=== PATIENT | male | born 1950 | race Caucasian/White ===

== ENCOUNTER → 2017-03-17 | Day surgery (SDC) | payer BC, OTHER ==
[~2017-03-17] MED LIST: Lactated Ringers 1,000 ML IV SCH; Lidocaine 4% Top Soln 5 ML LTA Syringe ONE; Meperidine PF 50 MG/ML Syringe IV ONE; Meperidine PF 50 MG/ML Syringe ONE; Midazolam 1 MG/ML 2 ML SDV IV ONE; Midazolam 1 MG/ML 2 ML SDV ONE
[2017-03-17 10:02] VITALS: BP 163/88
--- NOTE | 2017-03-17 14:45 | OR ---
DATE OF OPERATION: 03/17/2017 PREOPERATIVE DIAGNOSIS: 1. ABDOMINAL PAIN. 2. ALTERED BOWEL HABITS. POSTOPERATIVE DIAGNOSIS: 1. ABDOMINAL PAIN. 2. ALTERED BOWEL HABITS. SURGEON: Kenn Toscano MD PROCEDURE: 1. ESOPHAGOGASTRODUODENOSCOPY WITH BIOPSIES X2, KELLY. 2. FULL-LENGTH COLONOSCOPY. ANESTHESIA: Conscious sedation. COMPLICATIONS: None. SPECIMEN: 1. Antral biopsy x2. 2. KELLY. FINDINGS: 1. Full-length EGD. 2. Hemorrhagic antral gastritis. 3. Full-length colonoscopy. 4. Mild sigmoid diverticulosis. RECOMMENDATIONS: Medical followup as appropriate. INDICATIONS: The patient has been having ongoing issues with some epigastric and upper abdominal discomfort with occasional altered bowels, which are longstanding. We elected to proceed with upper and lower endoscopy. DESCRIPTION OF PROCEDURE: The patient was prepped and draped, placed in the left lateral decubitus position. A lubricated Olympus gastroscope inserted, a bit advanced cricopharyngeus area with the patient intubated in the esophagus. Esophageal lining was benign in its entire course. The Z-line was crisp and sharp at 38.5 Cm. No hernia. No distal esophagitis, stricturing, ulceration, or Dubon's changes seen. The scope was advanced into the stomach through the pylorus into the third portion of the duodenum. The second and third portion of the duodenum along with the duodenal bulb were benign. The scope was brought back into the stomach and retroflexed. The upper fundus and cardia were unremarkable. Upon straightening and good evaluation, the rest of the gastric lining showed evidence of antral gastritis, fairly prominent and significant around the pylorus with some petechial changes there consistent with hemorrhagic gastritis. Biopsies x2 were taken along with a KELLY. No other polyps, masses, or lesions were seen. Air was then suctioned, and the scope was removed without complication. A lubricated Olympus colonoscope was then inserted and easily advanced to the deep right colon where the patient is very obese. It is very difficult to get the scope into the cecal pouch. We could visualize the valve from a few centimeters away, but could not actually get into the pouch to look, and there was a lot of stool there, so no visualization of that most proximal portion of the colon was seen. The rest of the colon had a lot of liquid stool, but was able to be suctioned. Upon withdrawal throughout the right transverse and descending colon, no abnormalities were seen. The patient does have scattered diverticula in the sigmoid, mild in severity, mostly in the distal sigmoid area, and in the rectosigmoid junction. No masses, polyps, ulcerations, or bleeding sites were seen. No vascular abnormalities or signs of colitis. The rectal vault was unremarkable. Retroflexion scope in the rectum showed no anal lesions. Air was then suctioned. Scope was removed without complication. FABIANO/LAKISHA /[id number]
== END ==
LOC: CC.SDS 08:06
PROVIDERS: ATTEND Family Medicine
DX: K29.51 Unspecified chronic gastritis with bleeding (principal); K57.30 Diverticulosis of large intestine without perforation or abscess without bleeding
CPT/HCPCS: 43239; 45378; 82962; 87081; J2175; J2250; J7120

== ENCOUNTER 2017-06-27 08:37 | Inpatient (IN) | payer OTHER, MEDICARE ==
[2017-06-27] MEDS ORDERED: Temazepam 15 MG Cap PO PRN (09:58)
[2017-06-27] MEDS ORDERED: Ondansetron 4 MG Tab.DIS PO PRN (09:58)
[2017-06-27] MEDS ORDERED: Acetaminophen 325 MG Tab PO PRN (09:58)
[2017-06-27 10:42] LABS: CHLORIDE,CL 104 mEq/L (98-106); SODIUM,NA 142 mEq/L (136-145)
[2017-06-27] MEDS: Insulin Aspart 100 Units/ML 3 ML Pen SUBCUT SCH ×3 (11:34→21:55)
[2017-06-27] MEDS: Sodium Chloride 0.9% 1,000 ML IV SCH (11:46)
[2017-06-27] MEDS ORDERED: Iopamidol 612 MG/ML 100 ML Bottle IVPUSH ONE (14:27)
[2017-06-27] MEDS: Enoxaparin 40 MG/0.4 ML Syringe SUBCUT SCH (20:05)
[2017-06-27] MEDS: CYCLOSPORINE OPTHALMIC EYEBOTH SCH (21:55)
[2017-06-28] MEDS: Sodium Chloride 0.9% 1,000 ML IV SCH (00:57)
[2017-06-28] MEDS: Levothyroxine 50 MCG Tab PO SCH (07:00)
[2017-06-28] MEDS: Fenofibrate 160 MG Tab PO SCH (07:50)
[2017-06-28] MEDS: CYCLOSPORINE OPTHALMIC EYEBOTH SCH ×2 (07:51→20:33)
[2017-06-28] MEDS: Lisinopril 10 MG Tab PO SCH (07:51)
[2017-06-28] MEDS: Pantoprazole 40 MG Tab.CR PO SCH (07:51)
[2017-06-28] MEDS: Insulin Aspart 100 Units/ML 3 ML Pen SUBCUT SCH ×4 (07:52→20:41)
[2017-06-28] MEDS: Insulin Detemir 100 Units/ML 3 ML Pen SUBCUT SCH ×2 (09:41→20:40)
[2017-06-28] MEDS: Metoclopramide 10 MG Tab PO SCH ×2 (14:26→20:35)
[2017-06-28] MEDS: Gabapentin 100 MG Cap PO SCH ×2 (14:26→20:35)
--- NOTE | 2017-06-28 16:00 | PCM.PN ---
- General Info Date of Service: 06/28/17 Admission Dx/Problem (Free Text): Weight loss Confusion Nausea Functional Status: Reports: Pain Controlled, Tolerating Diet, Ambulating, Urinating (frequent urination) - Review of Systems General: Reports: Fatigue. Denies: Fever, Weakness HEENT: Denies: Ear Pain, Sinus Congestion, Rhinitis Pulmonary: Denies: Shortness of Breath, Cough, Wheezing Cardiovascular: Reports: Edema. Denies: Chest Pain, Lightheadedness Gastrointestinal: Reports: Decreased Appetite, Nausea. Denies: Abdominal Pain, Vomiting Genitourinary: Reports: Frequency. Denies: Dysuria Musculoskeletal: Reports: No Symptoms Skin: Reports: No Symptoms Neurological: Reports: Confusion (patient states "sees things at night that aren 't there, not ever sure if he is sleeping or not") - Patient Data Vitals - Most Recent: Last Vital Signs Temp 97.3 F 06/28/17 11:29 Pulse 75 06/28/17 11:29 Resp 20 06/28/17 11:29 BP 144/77 H 06/28/17 11:29 Pulse Ox 96 06/28/17 11:29 Weight - Most Recent: 227 lb 1.6 oz I&O - Last 24 Hours: Intake & Output 06/28/17 06/28/17 06/28/17 06:59 14:59 22:59 Intake Total 2139 200 Output Total 2700 600 Balance -561 -400 Lab Results Last 24 Hours: Laboratory Results - last 24 hr 06/27/17 06/27/17 06/27/17 Range/Units 07:00 17:20 20:22 POC Glucose 112 H 130 H (75-105) mg/dl TSH, Ultra Sensitive 1.40 (0.36-5.60) uIU/mL 06/28/17 06/28/17 Range/Units 07:25 11:27 POC Glucose 114 H 114 H (75-105) mg/dl TSH, Ultra Sensitive (0.36-5.60) uIU/mL Med Orders - Current: Current Medications Acetaminophen (Tylenol) 650 mg PO Q4H PRN PRN Reason: Pain (Mild 1-3)/fever Enoxaparin Sodium (Lovenox) 40 mg SUBCUT Q24H [facility] Last Admin: 06/27/17 20:05 Dose: 40 mg Fenofibrate (Fenofibrate) 80 mg PO DAILY [facility] Last Admin: 06/28/17 07:50 Dose: 80 mg Gabapentin (Neurontin) 100 mg PO TID [facility] Last Admin: 06/28/17 14:26 Dose: 100 mg Insulin Aspart (Novolog) 0 unit SUBCUT WITHMEALSANDBED [facility] PRN Reason: Protocol Last Admin: 06/28/17 13:00 Dose: Not Given Insulin Detemir (Levemir) 40 unit SUBCUT BID [facility] Last Admin: 06/28/17 09:41 Dose: Not Given Levothyroxine Sodium (Synthroid) 75 mcg PO DAILY [facility] Last Admin: 06/28/17 07:00 Dose: 75 mcg Lisinopril (Prinivil) 10 mg PO DAILY [facility] Last Admin: 06/28/17 07:51 Dose: 10 mg Metoclopramide HCl (Reglan) 10 mg PO TID [facility] Last Admin: 06/28/17 14:26 Dose: 10 mg Cyclosporine [ (Restasis] Opthalmic) 1 drop EYEBOTH BID [facility] Last Admin: 06/28/17 07:51 Dose: Not Given Ondansetron HCl (Zofran Odt) 4 mg PO Q4H PRN PRN Reason: nausea, able to take PO Last Admin: 06/27/17 20:06 Dose: 4 mg Pantoprazole Sodium (Protonix) 40 mg PO DAILY [facility] Last Admin: 06/28/17 07:51 Dose: 40 mg Temazepam (Restoril) 15 mg PO BEDTIME PRN PRN Reason: Sleep Discontinued Medications Sodium Chloride (Normal Saline) 1,000 mls @ 75 mls/hr IV ASDIRECTED [facility] Last Admin: 06/28/17 00:57 Dose: 75 mls/hr Iopamidol (Isovue-300 (61%)) 100 ml IVPUSH ONETIME ONE Stop: 06/27/17 14:28 Last Admin: 06/27/17 14:32 Dose: 100 ml - Exam General: Alert, Oriented HEENT: Mucous Membr. Moist/[place] Neck: Supple Lungs: Clear to Auscultation, Normal Respiratory Effort Cardiovascular: Regular Rate, Regular Rhythm GI/Abdominal Exam: Normal Bowel Sounds, Soft, Non-Tender Extremities: Normal Inspection Skin: Warm, Dry Neurological: No New Focal Deficit - Problem List & Annotations (1) Weight loss SNOMED Code(s): 675063366, 090559321 Code(s): R63.4 - ABNORMAL WEIGHT LOSS Status: Acute Current Visit: Yes (2) Nausea SNOMED Code(s): 503704867 Code(s): R11.0 - NAUSEA Status: Acute Current Visit: Yes (3) Hallucinations SNOMED Code(s): 8065643 Code(s): R44.3 - HALLUCINATIONS, UNSPECIFIED Status: Acute Current Visit : Yes (4) Dehydration SNOMED Code(s): 95645452 Code(s): E86.0 - DEHYDRATION Status: Acute Priority: High Current Visit : No - Problem List Review Problem List Initiated/Reviewed/Updated: Yes - My Orders Last 24 Hours: My Active Orders 06/28/17 09:45 Insulin Detemir [Levemir] 40 unit SUBCUT BID 06/28/17 14:00 Gabapentin [Neurontin] 100 mg PO TID Metoclopramide [Reglan] 10 mg PO TID - Assessment Assessment:: Weight Loss Nausea Nighttime hallucinations - Plan Plan:: Patient states "not feeling that well this am" after eating breakfast. Feels very nauseated. Did eat 100% this am. States didn't sleep well due to frequency with urination. Admits that is currently not taking the Toviaz, took 2 days and didn't see any improvement. Also complains of constant itching. Was to try Lyrica for this but was scared of the side effects. States still having nighttime hallucinations, not sure if "awake or asleep" during these. Is worried that he has early signs of Alzheimers as his father did although he has no concerns with forgetfulness or memory issues. Has not been very compliant with meds in the past. Has been nauseated and not eating well for the last 3 weeks. History of PUD. Admitted for 13# weight loss during that time. CT scans of abdomen, pelvis, chest and head done. All negative. Initial labs on admit negative. Long discussion held today with patient, , Dr. Toscano and myself. Is noncompliant with meds and generally many that have been suggested to him would help his symptoms. Will stop his Primidone that he took for tremors. Start Reglan for probable gastroparesis. Resume his insulin. Start gabapentin for the itching. He and his do want to see a diabetic specialist so will arrange for him to see Dr. Lange in the future despite his A1C being 6.7. Continue Protonix. Stop IV fluids. Ambulate in halls and see how he does. Has been worried about depression and since these hallucinations seem to only occur at night, at some point, may need to see psychologist. Will reevaluate in am and see if getting some relief of his symptoms.
[2017-06-28] MEDS: Enoxaparin 40 MG/0.4 ML Syringe SUBCUT SCH (20:34)
[2017-06-29] MEDS: CYCLOSPORINE OPTHALMIC EYEBOTH SCH ×2 (07:57→19:47)
[2017-06-29] MEDS: Fenofibrate 160 MG Tab PO SCH (07:57)
[2017-06-29] MEDS: Gabapentin 100 MG Cap PO SCH ×3 (07:58→19:48)
[2017-06-29] MEDS: Lisinopril 10 MG Tab PO SCH (07:59)
[2017-06-29] MEDS: Levothyroxine 50 MCG Tab PO SCH (07:59)
[2017-06-29] MEDS: Pantoprazole 40 MG Tab.CR PO SCH (07:59)
[2017-06-29] MEDS: Metoclopramide 10 MG Tab PO SCH ×3 (07:59→19:49)
[2017-06-29] MEDS: Insulin Aspart 100 Units/ML 3 ML Pen SUBCUT SCH ×4 (08:05→20:33)
[2017-06-29] MEDS: Insulin Detemir 100 Units/ML 3 ML Pen SUBCUT SCH ×2 (08:05→20:33)
--- NOTE | 2017-06-29 12:35 | PCM.PN ---
- General Info Date of Service: 06/29/17 Admission Dx/Problem (Free Text): Weight loss Confusion Nausea Functional Status: Reports: Pain Controlled, Tolerating Diet, Ambulating - Review of Systems General: Reports: Weakness, Fatigue. Denies: Fever HEENT: Reports: No Symptoms Pulmonary: Denies: Shortness of Breath, Cough, Wheezing Cardiovascular: Denies: Chest Pain, Edema, Lightheadedness Gastrointestinal: Reports: Nausea (states nausea is somewhat better than yesterday). Denies: Abdominal Pain, Decreased Appetite, Diarrhea, Vomiting Genitourinary: Reports: Frequency (frequency is less prominent than it has been) Musculoskeletal: Reports: No Symptoms Skin: Reports: No Symptoms Neurological: Reports: No Symptoms. Denies: Dizziness, Headache Psychiatric: Reports: No Symptoms - Patient Data Vitals - Most Recent: Last Vital Signs Temp 96.7 F 06/29/17 08:00 Pulse 60 06/29/17 08:00 Resp 19 06/29/17 08:00 BP 137/76 06/29/17 08:00 Pulse Ox 99 06/29/17 08:00 Weight - Most Recent: 228 lb 8 oz I&O - Last 24 Hours: Intake & Output 06/28/17 06/29/17 06/29/17 22:59 06:59 14:59 Intake Total 750 325 Output Total 450 1000 Balance 300 -675 Lab Results Last 24 Hours: Laboratory Results - last 24 hr 06/28/17 06/28/17 06/29/17 Range/Units 17:14 20:21 08:04 POC Glucose 136 H 238 H 97 (75-105) mg/dl Med Orders - Current: Current Medications Acetaminophen (Tylenol) 650 mg PO Q4H PRN PRN Reason: Pain (Mild 1-3)/fever Enoxaparin Sodium (Lovenox) 40 mg SUBCUT Q24H [facility] Last Admin: 06/28/17 20:34 Dose: 40 mg Fenofibrate (Fenofibrate) 80 mg PO DAILY [facility] Last Admin: 06/29/17 07:57 Dose: 80 mg Gabapentin (Neurontin) 100 mg PO TID [facility] Last Admin: 06/29/17 07:58 Dose: 100 mg Insulin Aspart (Novolog) 0 unit SUBCUT WITHMEALSANDBED [facility] PRN Reason: Protocol Last Admin: 06/29/17 12:02 Dose: Not Given Insulin Detemir (Levemir) 40 unit SUBCUT BID [facility] Last Admin: 06/29/17 08:05 Dose: 40 unit Levothyroxine Sodium (Levothyroxine) 75 mcg PO DAILY [facility] Lisinopril (Prinivil) 10 mg PO DAILY [facility] Last Admin: 06/29/17 07:59 Dose: 10 mg Metoclopramide HCl (Reglan) 10 mg PO TID [facility] Last Admin: 06/29/17 07:59 Dose: 10 mg Cyclosporine [ (Restasis] Opthalmic) 1 drop EYEBOTH BID [facility] Last Admin: 06/29/17 07:57 Dose: 1 drop Ondansetron HCl (Zofran Odt) 4 mg PO Q4H PRN PRN Reason: nausea, able to take PO Last Admin: 06/27/17 20:06 Dose: 4 mg Pantoprazole Sodium (Protonix) 40 mg PO DAILY [facility] Last Admin: 06/29/17 07:59 Dose: 40 mg Temazepam (Restoril) 15 mg PO BEDTIME PRN PRN Reason: Sleep Discontinued Medications Sodium Chloride (Normal Saline) 1,000 mls @ 75 mls/hr IV ASDIRECTED [facility] Last Admin: 06/28/17 00:57 Dose: 75 mls/hr Iopamidol (Isovue-300 (61%)) 100 ml IVPUSH ONETIME ONE Stop: 06/27/17 14:28 Last Admin: 06/27/17 14:32 Dose: 100 ml Levothyroxine Sodium (Synthroid) 75 mcg PO DAILY [facility] Last Admin: 06/29/17 07:59 Dose: 75 mcg - Exam General: Alert, Oriented HEENT: Mucous Membr. Moist/[place] Neck: Supple Lungs: Clear to Auscultation, Normal Respiratory Effort Cardiovascular: Regular Rate, Regular Rhythm GI/Abdominal Exam: Normal Bowel Sounds, Soft, Non-Tender Skin: Warm, Dry Neurological: No New Focal Deficit - Problem List & Annotations (1) Weight loss SNOMED Code(s): 746959854, 900379291 Code(s): R63.4 - ABNORMAL WEIGHT LOSS Status: Acute Priority: High Current Visit: Yes (2) Nausea SNOMED Code(s): 313802005 Code(s): R11.0 - NAUSEA Status: Acute Priority: High Current Visit: Yes (3) Hallucinations SNOMED Code(s): 4928599 Code(s): R44.3 - HALLUCINATIONS, UNSPECIFIED Status: Acute Priority: High Current Visit: Yes (4) Dehydration SNOMED Code(s): 52925022 Code(s): E86.0 - DEHYDRATION Status: Acute Priority: High Current Visit : No - Problem List Review Problem List Initiated/Reviewed/Updated: Yes - My Orders Last 24 Hours: My Active Orders 06/28/17 14:00 Gabapentin [Neurontin] 100 mg PO TID Metoclopramide [Reglan] 10 mg PO TID - Assessment Assessment:: Weight Loss Nausea Nighttime hallucinations - Plan Plan:: Patient states "not feeling that well this am" after eating breakfast. Feels very nauseated. Did eat 100% this am. States didn't sleep well due to frequency with urination. Admits that is currently not taking the Toviaz, took 2 days and didn't see any improvement. Also complains of constant itching. Was to try Lyrica for this but was scared of the side effects. States still having nighttime hallucinations, not sure if "awake or asleep" during these. Is worried that he has early signs of Alzheimers as his father did although he has no concerns with forgetfulness or memory issues. Has not been very compliant with meds in the past. Has been nauseated and not eating well for the last 3 weeks. History of PUD. Admitted for 13# weight loss during that time. CT scans of abdomen, pelvis, chest and head done. All negative. Initial labs on admit negative. Long discussion held today with patient, , Dr. Toscano and myself. Is noncompliant with meds and generally many that have been suggested to him would help his symptoms. Will stop his Primidone that he took for tremors. Start Reglan for probable gastroparesis. Resume his insulin. Start gabapentin for the itching. He and his do want to see a diabetic specialist so will arrange for him to see Dr. Lange in the future despite his A1C being 6.7. Continue Protonix. Stop IV fluids. Ambulate in halls and see how he does. Has been worried about depression and since these hallucinations seem to only occur at night, at some point, may need to see psychologist. Will reevaluate in am and see if getting some relief of his symptoms. 06-29-2017 Patient admits he is feeling better today. Has been ambulating frequently in the halls. Feels nausea has improved. Notes he was yesterday am and again last night but certainly improved from what it had been. States slept very well last night. He was also started on Gabapentin and thus far has tolerated well. does not feel back to his usual self yet but better. Vital signs stable. Blood sugars have varied between 97-238. Less hallucinations last night, states only occurred x1. Continue new meds with probable discharge in am.
[2017-06-29] MEDS: Enoxaparin 40 MG/0.4 ML Syringe SUBCUT SCH (19:48)
[2017-06-30 07:48] VITALS: BP 121/71
[2017-06-30] MEDS ORDERED: Levothyroxine 150 MCG Tab PO SCH (08:00)
[2017-06-30] MEDS: Metoclopramide 10 MG Tab PO SCH (08:11)
[2017-06-30] MEDS: Fenofibrate 160 MG Tab PO SCH (08:11)
[2017-06-30] MEDS: Insulin Aspart 100 Units/ML 3 ML Pen SUBCUT SCH (08:12)
[2017-06-30] MEDS: CYCLOSPORINE OPTHALMIC EYEBOTH SCH (08:12)
[2017-06-30] MEDS: Gabapentin 100 MG Cap PO SCH (08:12)
[2017-06-30] MEDS: Lisinopril 10 MG Tab PO SCH (08:12)
[2017-06-30] MEDS: Pantoprazole 40 MG Tab.CR PO SCH (08:12)
[2017-06-30] MEDS: Insulin Detemir 100 Units/ML 3 ML Pen SUBCUT SCH (08:14)
--- NOTE | 2017-07-02 22:05 | PCM.DCSUM1 ---
Discharge Summary - Hospital Course Free Text/Narrative:: Patient admitted form clinic per Dr. Toscano due to ongoing nausea and a 13# weight loss, confusion. Had not had much of an appetite. Relates he had been experiencing hallucinations, especially at night. Reprots he had been seeing things that were not there. Patient had felt weak. Was admitted for med changes and complete work up to consider all sources of weight loss. Labs ordered. CT scan of abdomen, pelvis and head ordered. - Discharge Data Discharge Date: 06/30/17 Discharge Disposition: Home, Self-Care 01 Condition: Good - Discharge Diagnosis/Problem(s) (1) Weight loss SNOMED Code(s): 09611551, 590074674 ICD Code: R63.4 - ABNORMAL WEIGHT LOSS Status: Acute Priority: High (2) Nausea SNOMED Code(s): 452176751 ICD Code: R11.0 - NAUSEA Status: Acute Priority: High (3) Hallucinations SNOMED Code(s): 8273568 ICD Code: R44.3 - HALLUCINATIONS, UNSPECIFIED Status: Acute Priority: High (4) Dehydration SNOMED Code(s): 00263600 ICD Code: E86.0 - DEHYDRATION Status: Acute Priority: High - Patient Summary/Data Complications: none Hospital Course: Patient has seen improvement over the last 3 days. He did initially feel nauseated but was tolerating meal intake. Stopped his Primidone and started Reglan. Patient has been experiencing itching throughout and we were able to initiate Gabapentin and watch for tolerance and side effects. He had been leary to try Lyrica as he was scared of the side effects. He has tolerated the gabapentin. Insulin was restarted, sugars under fairly good control. 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 Patient was feeling better by discharge. Up and ambulatory. Tolerated well. - Patient Instructions Diet: Diabetic Diet Activity: As Tolerated Notify Provider of: Fever, Nausea and/or Vomiting - Discharge Plan Prescriptions/Med Rec: Gabapentin [Neurontin] 100 mg PO TID #90 cap Metoclopramide [Reglan] 10 mg PO TID #90 tablet Home Medications: Home Meds Levothyroxine Sodium [Levoxyl] 75 mcg PO DAILY 09/24/15 [History] Pantoprazole [ProTONIX] 40 mg PO DAILY 09/24/15 [History] Ranitidine HCl 300 mg PO DAILY 09/24/15 [History] Rosuvastatin [Crestor] 10 mg PO DAILY 09/24/15 [History] buPROPion HCl [Wellbutrin Xl] 300 mg PO DAILY 09/24/15 [History] Cetirizine [ZyrTEC] 1 mg PO DAILY PRN 02/17/16 [History] Fenofibrate Nanocrystallized [Tricor] 48 mg PO DAILY 02/17/16 [History] Insulin Aspart [NovoLOG] 16 units SUBCUT QAM 03/14/17 [History] Insulin Aspart [NovoLOG] 20 units SUBCUT 1200 03/14/17 [History] Insulin Aspart [NovoLOG] 24 units SUBCUT WITHDINNER 03/14/17 [History] Lisinopril 10 mg PO DAILY 03/14/17 [History] Triamcinolone Acetonide [Triamcinolone Acetonide 0.1% Crm] 1 applic TOP TID PRN 03/14/17 [History] Fesoterodine Fumarate [Toviaz] 8 mg PO BEDTIME 06/27/17 [History] Tresiba 80 unit SQ BEDTIME 06/27/17 [History] cycloSPORINE [Restasis] 1 drop EYEBOTH BID 06/27/17 [History] Gabapentin [Neurontin] 100 mg PO TID #90 cap 06/30/17 [Rx] Metoclopramide [Reglan] 10 mg PO TID #90 tablet 06/30/17 [Rx] Referrals: Kenn Toscano MD [Primary Care Provider] - (Follow up in [address] Toscano in clinic) - Discharge Summary/Plan Comment DC Time >30 min.: No Discharge Summary/Plan Comment: Stop Primidone. Continue Reglan. Continue Miralax. Gabapentin 100 mg TID. Follow up with DR. Toscano in 2 weeks. - General Info Date of Service: 06/30/17 Admission Dx/Problem (Free Text: Weight loss Confusion Nausea Functional Status: Reports: Pain Controlled, Tolerating Diet, Ambulating - Review of Systems General: Reports: Fatigue. Denies: Fever, Weakness HEENT: Reports: No Symptoms Pulmonary: Denies: Shortness of Breath, Cough, Wheezing Cardiovascular: Denies: Chest Pain, Edema, Lightheadedness Gastrointestinal: Denies: Constipation, Decreased Appetite, Nausea, Vomiting Genitourinary: Reports: Frequency Musculoskeletal: Reports: No Symptoms Skin: Reports: No Symptoms Neurological: Denies: Confusion, Weakness Psychiatric: Reports: No Symptoms - Patient Data Vitals - Most Recent: Last Vital Signs Temp 96.7 F 06/30/17 07:47 Pulse 66 06/30/17 07:47 Resp 18 06/30/17 07:47 BP 121/71 06/30/17 08:12 Pulse Ox 98 06/30/17 07:47 Weight - Most Recent: 227 lb 6.4 oz Med Orders - Current: Current Medications Discontinued Medications Acetaminophen (Tylenol) 650 mg PO Q4H PRN PRN Reason: Pain (Mild 1-3)/fever Enoxaparin Sodium (Lovenox) 40 mg SUBCUT Q24H [facility] Last Admin: 06/29/17 19:48 Dose: 40 mg Fenofibrate (Fenofibrate) 80 mg PO DAILY [facility] Last Admin: 06/30/17 08:11 Dose: 80 mg Gabapentin (Neurontin) 100 mg PO TID [facility] Last Admin: 06/30/17 08:12 Dose: 100 mg Sodium Chloride (Normal Saline) 1,000 mls @ 75 mls/hr IV ASDIRECTED [facility] Last Admin: 06/28/17 00:57 Dose: 75 mls/hr Insulin Aspart (Novolog) 0 unit SUBCUT WITHMEALSANDBED [facility] PRN Reason: Protocol Last Admin: 06/30/17 08:12 Dose: Not Given Insulin Detemir (Levemir) 40 unit SUBCUT BID [facility] Last Admin: 06/30/17 08:14 Dose: 40 unit Iopamidol (Isovue-300 (61%)) 100 ml IVPUSH ONETIME ONE Stop: 06/27/17 14:28 Last Admin: 06/27/17 14:32 Dose: 100 ml Levothyroxine Sodium (Synthroid) 75 mcg PO DAILY [facility] Last Admin: 06/29/17 07:59 Dose: 75 mcg Levothyroxine Sodium (Levothyroxine) 75 mcg PO DAILY [facility] Last Admin: 06/30/17 08:11 Dose: 75 mcg Lisinopril (Prinivil) 10 mg PO DAILY [facility] Last Admin: 06/30/17 08:12 Dose: 10 mg Metoclopramide HCl (Reglan) 10 mg PO TID [facility] Last Admin: 06/30/17 08:11 Dose: 10 mg Cyclosporine [ (Restasis] Opthalmic) 1 drop EYEBOTH BID [facility] Last Admin: 06/30/17 08:12 Dose: 1 drop Ondansetron HCl (Zofran Odt) 4 mg PO Q4H PRN PRN Reason: nausea, able to take PO Last Admin: 06/27/17 20:06 Dose: 4 mg Pantoprazole Sodium (Protonix) 40 mg PO DAILY [facility] Last Admin: 06/30/17 08:12 Dose: 40 mg Temazepam (Restoril) 15 mg PO BEDTIME PRN PRN Reason: Sleep - Exam General: Reports: Alert, Oriented HEENT: Reports: Mucous Membr. Moist/[place] Neck: Reports: Supple Lungs: Reports: Clear to Auscultation, Normal Respiratory Effort Cardiovascular: Reports: Regular Rate, Regular Rhythm GI/Abdominal Exam: Normal Bowel Sounds, Soft, Non-Tender (Male) Exam: No Hernia Extremities: Normal Inspection, Normal Range of Motion Skin: Reports: Warm, Dry Neurological: Reports: No New Focal Deficit *Q Meaningful Use (DIS) - VTE *Q VTE Criteria *Q: - Stroke *Q Stroke Criteria *Q: - AMI *Q AMI Criteria *Q:
== END 2017-06-30 09:45 | disposition home or self-care (01) | DRG 641 ==
LOC: CC.MS 08:37 → CC.FCMC 08:37 → UNDOADMIN 09:29 → CC.MS 09:29
PROVIDERS: ADMIT Family Medicine; ATTEND Family Medicine
DX: R63.4 Abnormal weight loss (principal); R44.3 Hallucinations, unspecified; R11.0 Nausea; R41.0 Disorientation, unspecified; E86.0 Dehydration; E11.9 Type 2 diabetes mellitus without complications; F32.9 Major depressive disorder, single episode, unspecified; I10 Essential (primary) hypertension; E03.9 Hypothyroidism, unspecified; Z88.0 Allergy status to penicillin; Z79.899 Other long term (current) drug therapy; Z79.4 Long term (current) use of insulin
CPT/HCPCS: 36415; 70450; 71260; 74177; 80053; 81001; 82550; 82962; 84443; 84484; 85025; 86140; 93005; A9270-GY; J1650; J1815-GY; J7030; Q9967

== ENCOUNTER 2019-03-20 13:28 | Inpatient (IN) | payer OTHER, MEDICARE ==
[2019-03-20] MEDS ORDERED: Sodium Chloride 0.9% 10 ML Syringe FLUSH PRN (16:50)
[2019-03-20] MEDS ORDERED: Ondansetron 4 MG/2 ML SDV IV PRN (16:50)
[2019-03-20] MEDS ORDERED: Ondansetron 4 MG Tab.DIS PO PRN (16:50)
[2019-03-20] MEDS ORDERED: Morphine 2 MG/ML Syringe IVPUSH PRN (16:50)
[2019-03-20] MEDS ORDERED: CYCLOSPORINE 0.05% EYEBOTH PRN (16:56)
[2019-03-20] MEDS ORDERED: Insulin Lispro 100 Units/ML 3 ML Vial SUBCUT PRN (17:15)
[2019-03-20 17:52] LABS: CHLORIDE,CL 103 mEq/L (98-106); SODIUM,NA 140 mEq/L (136-145)
[2019-03-20] MEDS ORDERED: Iopamidol 755 Mg/ML 100 ML Bottle IVPUSH ONE (18:31)
[2019-03-20] MEDS: Enoxaparin 40 MG/0.4 ML Syringe SUBCUT SCH (19:10)
[2019-03-20] MEDS ORDERED: TRESIBA 40 UNIT SQ SCH (20:00)
[2019-03-20] MEDS: traZODone 50 MG Tab PO SCH (20:25)
[2019-03-20] MEDS: Simvastatin 40 MG Tab PO SCH (20:25)
[2019-03-20] MEDS: Gabapentin 100 MG Cap PO SCH (20:25)
[2019-03-20] MEDS: TRESIBA 30 UNIT SQ SCH (20:26)
[2019-03-21] MEDS: Levothyroxine 50 MCG Tab PO SCH (07:43)
[2019-03-21] MEDS: Gabapentin 100 MG Cap PO SCH (07:44)
[2019-03-21] MEDS: QUEtiapine 25 MG Tab PO SCH (07:45)
[2019-03-21] MEDS: Famotidine 20 MG Tab PO SCH (07:45)
[2019-03-21] MEDS: buPROPion 150 MG Tab.ER PO SCH (07:45)
[2019-03-21] MEDS ORDERED: Lisinopril 5 MG Tab PO PRN (08:00)
[2019-03-21] MEDS: TRESIBA 30 UNIT SQ SCH (10:12)
[2019-03-21] MEDS: cefTRIAXone 1 GM Vial IVPUSH SCH (10:25)
[2019-03-21] MEDS: VORTIOXETINE HYDROBROMIDE 20 MG PO SCH (10:25)
--- NOTE | 2019-03-21 11:43 | PCM.PN ---
- General Info Date of Service: 03/21/19 Admission Dx/Problem (Free Text): Bilateral Ankle Fractures Syncope Functional Status: Reports: Pain Controlled, Tolerating Diet. Denies: Ambulating - Review of Systems General: Reports: Weakness. Denies: Fever, Chills HEENT: Reports: No Symptoms Pulmonary: Denies: Shortness of Breath, Cough Cardiovascular: Denies: Chest Pain, Edema, Lightheadedness Gastrointestinal: Denies: Abdominal Pain, Nausea, Vomiting Genitourinary: Reports: No Symptoms Musculoskeletal: Reports: Leg Pain (states minimal leg discomfort now) Skin: Reports: No Symptoms Neurological: Reports: No Symptoms - Patient Data Vitals - Most Recent: Last Vital Signs Temp 96 F 03/21/19 07:40 Pulse 79 03/21/19 07:40 Resp 18 03/21/19 07:40 BP 143/65 H 03/21/19 07:40 Pulse Ox 98 03/21/19 07:40 Weight - Most Recent: 220 lb Lab Results Last 24 Hours: Laboratory Results - last 24 hr 03/20/19 03/20/19 03/20/19 Range/Units 17:23 17:30 17:30 WBC 12.4 H (5.0-10.0) 10^3/uL RBC 4.10 L (4.50-6.00) 10^6/uL Hgb 13.0 L (14.0-18.0) g/dL Hct 39.0 L (40.0-54.0) % MCV 95.1 H (82.0-94.0) fL MCH 31.7 (27.0-32.0) pg MCHC 33.3 (33.0-38.0) g/dL RDW Coeff of Krista 12.7 (11.0-15.0) % Plt Count 215 (150-400) 10^3/uL Neut % (Auto) 74.7 (35-85) % Lymph % (Auto) 15.1 (10-55) % [place] % (Auto) 9.8 (0-16) % Eos % (Auto) 0.2 (0-5) % Baso % (Auto) 0.2 (0-3) % Neut # (Auto) 9.24 H (1.80-7.00) 10^3/uL Lymph # (Auto) 1.87 (1.00-4.80) 10^3/uL [place] # (Auto) 1.22 H (0.00-0.80) 10^3/uL Eos # (Auto) 0.03 (0.00-0.45) 10^3/uL Baso # (Auto) 0.03 10^3/uL D-Dimer, Quantitative (0.00-0.50) Sodium 140 (136-145) mEq/L Potassium 4.5 (3.5-5.0) mEq/L Chloride 103 (98-106) mEq/L Carbon Dioxide 27 (21-32) mmol/L BUN 29 H (7-18) mg/dL Creatinine 1.4 H (0.7-1.3) mg/dL Est Cr Clr Drug Dosing 49.10 mL/min Estimated GFR (MDRD) 50 L (>=60) mL/min Glucose 139 H (75-99) mg/dL POC Glucose 128 H (75-105) mg/dl Calcium 9.2 (8.4-10.1) mg/dL Magnesium 2.0 (1.8-2.4) mg/dL Troponin I < 0.017 (0.00-0.06) ng/mL Urine Color (YELLOW) Urine Appearance (CLEAR) Urine pH (4.5-8.0) Ur Specific [place] (1.003-1.020) Urine Protein (NEGATIVE) mg/dL Urine Glucose (UA) (NEGATIVE) mg/dL Urine Ketones (NEGATIVE) mg/dL Urine Occult Blood (NEGATIVE) Urine Nitrite (NEGATIVE) Urine Bilirubin (NEGATIVE) Urine Urobilinogen (0.2-1.0) EU/dL Ur Leukocyte Esterase (NEGATIVE) Urine RBC (0-5) /HPF Urine WBC (0-5) /HPF Ur Squamous Epith Cells (NOT SEEN) /HPF Urine Bacteria (NOT SEEN) /HPF Urinalysis Comment 03/20/19 03/20/19 03/20/19 Range/Units 17:30 20:40 21:26 WBC (5.0-10.0) 10^3/uL RBC (4.50-6.00) 10^6/uL Hgb (14.0-18.0) g/dL Hct (40.0-54.0) % MCV (82.0-94.0) fL MCH (27.0-32.0) pg MCHC (33.0-38.0) g/dL RDW Coeff of Krista (11.0-15.0) % Plt Count (150-400) 10^3/uL Neut % (Auto) (35-85) % Lymph % (Auto) (10-55) % [place] % (Auto) (0-16) % Eos % (Auto) (0-5) % Baso % (Auto) (0-3) % Neut # (Auto) (1.80-7.00) 10^3/uL Lymph # (Auto) (1.00-4.80) 10^3/uL [place] # (Auto) (0.00-0.80) 10^3/uL Eos # (Auto) (0.00-0.45) 10^3/uL Baso # (Auto) 10^3/uL D-Dimer, Quantitative 2.96 H (0.00-0.50) Sodium (136-145) mEq/L Potassium (3.5-5.0) mEq/L Chloride (98-106) mEq/L Carbon Dioxide (21-32) mmol/L BUN (7-18) mg/dL Creatinine (0.7-1.3) mg/dL Est Cr Clr Drug Dosing mL/min Estimated GFR (MDRD) (>=60) mL/min Glucose (75-99) mg/dL POC Glucose 150 H (75-105) mg/dl Calcium (8.4-10.1) mg/dL Magnesium (1.8-2.4) mg/dL Troponin I (0.00-0.06) ng/mL Urine Color Yellow (YELLOW) Urine Appearance Slightly cloudy (CLEAR) Urine pH 5.5 (4.5-8.0) Ur Specific [place] 1.010 (1.003-1.020) Urine Protein Trace H (NEGATIVE) mg/dL Urine Glucose (UA) Negative (NEGATIVE) mg/dL Urine Ketones Trace H (NEGATIVE) mg/dL Urine Occult Blood Negative (NEGATIVE) Urine Nitrite Positive H (NEGATIVE) Urine Bilirubin Negative (NEGATIVE) Urine Urobilinogen 0.2 (0.2-1.0) EU/dL Ur Leukocyte Esterase Trace H (NEGATIVE) Urine RBC 0-5 (0-5) /HPF Urine WBC 40-50 H (0-5) /HPF Ur Squamous Epith Cells Few H (NOT SEEN) /HPF Urine Bacteria Moderate H (NOT SEEN) /HPF Urinalysis Comment 03/21/19 03/21/19 Range/Units 06:50 07:43 WBC (5.0-10.0) 10^3/uL RBC (4.50-6.00) 10^6/uL Hgb (14.0-18.0) g/dL Hct (40.0-54.0) % MCV (82.0-94.0) fL MCH (27.0-32.0) pg MCHC (33.0-38.0) g/dL RDW Coeff of Krista (11.0-15.0) % Plt Count (150-400) 10^3/uL Neut % (Auto) (35-85) % Lymph % (Auto) (10-55) % [place] % (Auto) (0-16) % Eos % (Auto) (0-5) % Baso % (Auto) (0-3) % Neut # (Auto) (1.80-7.00) 10^3/uL Lymph # (Auto) (1.00-4.80) 10^3/uL [place] # (Auto) (0.00-0.80) 10^3/uL Eos # (Auto) (0.00-0.45) 10^3/uL Baso # (Auto) 10^3/uL D-Dimer, Quantitative (0.00-0.50) Sodium (136-145) mEq/L Potassium (3.5-5.0) mEq/L Chloride (98-106) mEq/L Carbon Dioxide (21-32) mmol/L BUN (7-18) mg/dL Creatinine (0.7-1.3) mg/dL Est Cr Clr Drug Dosing mL/min Estimated GFR (MDRD) (>=60) mL/min Glucose (75-99) mg/dL POC Glucose 121 H (75-105) mg/dl Calcium (8.4-10.1) mg/dL Magnesium (1.8-2.4) mg/dL Troponin I < 0.017 (0.00-0.06) ng/mL Urine Color (YELLOW) Urine Appearance (CLEAR) Urine pH (4.5-8.0) Ur Specific [place] (1.003-1.020) Urine Protein (NEGATIVE) mg/dL Urine Glucose (UA) (NEGATIVE) mg/dL Urine Ketones (NEGATIVE) mg/dL Urine Occult Blood (NEGATIVE) Urine Nitrite (NEGATIVE) Urine Bilirubin (NEGATIVE) Urine Urobilinogen (0.2-1.0) EU/dL Ur Leukocyte Esterase (NEGATIVE) Urine RBC (0-5) /HPF Urine WBC (0-5) /HPF Ur Squamous Epith Cells (NOT SEEN) /HPF Urine Bacteria (NOT SEEN) /HPF Urinalysis Comment [facility] Results Last 24 Hours: Microbiology 03/20/19 21:26 Urine Culture - Preliminary Urine, Voided Gram Negative Rods Med Orders - Current: Current Medications Hydrocodone Bitart/Acetaminophen ([place] 325-5 Mg) 1 tab PO Q4H PRN PRN Reason: Pain (moderate 4-6) Bupropion HCl (Wellbutrin Xl) 150 mg PO DAILY [facility] Last Admin: 03/21/19 07:45 Dose: 150 mg Ceftriaxone Sodium (Rocephin) 1 gm IVPUSH DAILY@0800 [facility] Last Admin: 03/21/19 10:25 Dose: 1 gm Enoxaparin Sodium (Lovenox) 40 mg SUBCUT Q24H [facility] Last Admin: 03/20/19 19:10 Dose: 40 mg Famotidine (Pepcid) 40 mg PO DAILY [facility] Last Admin: 03/21/19 07:45 Dose: 40 mg Gabapentin (Neurontin) 300 mg PO BID [facility] Insulin Glargine (Lantus Solostar) 30 units SUBCUT BID [facility] Insulin Human Lispro (Humalog) 20 unit SUBCUT TIDMEALS PRN PRN Reason: Hyperglycemia Levothyroxine Sodium (Synthroid) 75 mcg PO DAILY [facility] Last Admin: 03/21/19 07:43 Dose: 75 mcg Lisinopril (Prinivil) 2.5 mg PO DAILY PRN PRN Reason: Hypertension Morphine Sulfate (Morphine) 2 mg IVPUSH Q2H PRN PRN Reason: Pain (severe 7-10) Ptom Cyclosporine [ Restasis] 0.05% Ophth Soln 1 drop EYEBOTH BID PRN PRN Reason: Dry Eyes Ptom Vortioxetine Hydrobromide [ Trintellix] 20 Mg Tab 20 mg PO DAILY [facility] Last Admin: 03/21/19 10:25 Dose: 20 mg Ondansetron HCl (Zofran Odt) 4 mg PO Q4H PRN PRN Reason: nausea, able to take PO Ondansetron HCl (Zofran) 8 mg IV Q6H PRN PRN Reason: Nausea/Vomiting Quetiapine Fumarate (Seroquel) 50 mg PO DAILY [facility] Last Admin: 03/21/19 07:45 Dose: 50 mg Simvastatin (Zocor) 40 mg PO BEDTIME [facility] Last Admin: 03/20/19 20:25 Dose: 40 mg Sodium Chloride (Saline Flush) 10 ml FLUSH ASDIRECTED PRN PRN Reason: Keep Vein Open Trazodone HCl (Trazodone) 100 mg PO BEDTIME [facility] Last Admin: 03/20/19 20:25 Dose: 100 mg Discontinued Medications Gabapentin (Neurontin) 300 mg PO BID [facility] Last Admin: 03/21/19 07:44 Dose: 300 mg Iopamidol (Isovue-370 (76%)) 100 ml IVPUSH ONETIME ONE Stop: 03/20/19 18:32 Last Admin: 03/20/19 18:41 Dose: 140 ml Non-Formulary Medication (Tresiba) 40 unit SQ BID [facility] Non-Formulary Medication (Tresiba) 30 unit SQ BID [facility] Last Admin: 03/21/19 10:12 Dose: Not Given - Exam General: Alert, Oriented HEENT: Mucous Membr. Moist/[place] Neck: Supple Lungs: Clear to Auscultation, Normal Respiratory Effort Cardiovascular: Regular Rate, Regular Rhythm GI/Abdominal Exam: Normal Bowel Sounds, Soft, Non-Tender Extremities: Limited Range of Motion, Other (Left leg splint intact, cam boot to right leg.) Skin: Warm, Dry Neurological: No New Focal Deficit - Problem List & Annotations (1) Left tibial fracture SNOMED Code(s): 20872646 Code(s): S82.A - UNSP FRACTURE OF SHAFT OF LEFT TIBIA, INIT FOR CLOS FX Status: Acute Priority: High Current Visit: Yes Qualifiers: Encounter type: initial encounter Tibia location: medial malleolus Fracture type: closed Fracture alignment: nondisplaced Qualified Code(s): S82.55XA - Nondisplaced fracture of medial malleolus of left tibia, initial encounter for closed fracture (2) Right fibular fracture SNOMED Code(s): 69065633 Code(s): S82.401A - UNSP FRACTURE OF SHAFT OF RIGHT FIBULA, INIT FOR CLOS FX Status: Acute Priority: High Current Visit: Yes Qualifiers: Encounter type: initial encounter Fibula location: lateral malleolus Fracture type: closed Fracture alignment: nondisplaced Qualified Code(s): S82.64XA - Nondisplaced fracture of lateral malleolus of right fibula, initial encounter for closed fracture (3) Syncope SNOMED Code(s): 583077075 Code(s): R55 - SYNCOPE AND COLLAPSE Status: Acute Priority: High Current Visit: Yes Qualifiers: Encounter type: initial encounter (4) UTI (urinary tract infection) SNOMED Code(s): 96610872 Code(s): N39.0 - URINARY TRACT INFECTION, SITE NOT SPECIFIED Status: Acute Priority: High Current Visit: Yes Qualifiers: Urinary tract infection type: acute cystitis Hematuria presence: without hematuria Qualified Code(s): N30.00 - Acute cystitis without hematuria - Problem List Review Problem List Initiated/Reviewed/Updated: Yes - My Orders Last 24 Hours: My Active Orders 03/21/19 09:00 cefTRIAXone [Rocephin] 1 gm IVPUSH DAILY@0800 - Assessment Assessment:: Left Tibial Fracture Right Fibular Fracture Syncope UTI - Plan Plan:: Patient resting comfortably at the edge of the bed. Denies pain now in his legs , states much improved since cast/boot applied. Does have concerns with urination, states hard to void if can't stand. Is no weight bearing at present due to bilateral fractures. Also noted to have UTI. Had syncopal episode day prior with the fall resulting in fractures. Presented to clinic to see Dr. Toscano due to ongoing pain. He relates he has near syncope at times but typically feels it coming on and can sit down or lean on something and doesn't usually faint. States was getting up to the bathroom and awoke in the door frame. Denies feeling lightheaded today. No chest pain or shortness of breath. Will continue to provide assist with transfers due to no weight bearing. Physical therapy for ROM. Start Ceftriaxone for UTI. ancillary services manager to work with patient regarding placement at [facility].
[2019-03-21] MEDS: Acetaminophen/HYDROcodone 325-5 MG Tab PO PRN (13:18)
[2019-03-21] MEDS: Enoxaparin 40 MG/0.4 ML Syringe SUBCUT SCH (17:31)
[2019-03-21] MEDS: traZODone 50 MG Tab PO SCH (19:36)
[2019-03-21] MEDS: Gabapentin 300 MG Cap PO SCH (19:36)
[2019-03-21] MEDS: Simvastatin 40 MG Tab PO SCH (19:36)
[2019-03-21] MEDS: Insulin Glargine,Human Rec. Analog 100 Units/ML 3 ML Pen SUBCUT SCH (19:43)
[2019-03-22] MEDS: Famotidine 20 MG Tab PO SCH (07:35)
[2019-03-22] MEDS: Gabapentin 300 MG Cap PO SCH ×2 (07:35→19:30)
[2019-03-22] MEDS: Levothyroxine 50 MCG Tab PO SCH (07:37)
[2019-03-22] MEDS: QUEtiapine 25 MG Tab PO SCH (07:37)
[2019-03-22] MEDS: buPROPion 150 MG Tab.ER PO SCH (07:38)
[2019-03-22] MEDS: VORTIOXETINE HYDROBROMIDE 20 MG PO SCH (07:41)
[2019-03-22] MEDS: cefTRIAXone 1 GM Vial IVPUSH SCH (07:43)
[2019-03-22] MEDS: Insulin Glargine,Human Rec. Analog 100 Units/ML 3 ML Pen SUBCUT SCH ×2 (08:19→19:30)
--- NOTE | 2019-03-22 15:48 | PCM.PN ---
- General Info Date of Service: 03/22/19 Admission Dx/Problem (Free Text): Bilateral Ankle Fractures Syncope Functional Status: Reports: Pain Controlled, Tolerating Diet. Denies: Ambulating - Review of Systems General: Reports: Weakness, Fatigue HEENT: Reports: No Symptoms Pulmonary: Denies: Shortness of Breath, Cough Cardiovascular: Denies: Chest Pain, Edema, Lightheadedness Gastrointestinal: Denies: Abdominal Pain, Nausea, Vomiting Genitourinary: Reports: Frequency Musculoskeletal: Reports: Leg Pain (leg pain is minimal if legs are dangling, none while elevated.) Skin: Reports: No Symptoms Neurological: Reports: Confusion - Patient Data Vitals - Most Recent: Last Vital Signs Temp 97.3 F 03/22/19 11:55 Pulse 76 03/22/19 11:55 Resp 18 03/22/19 11:55 BP 118/64 03/22/19 11:55 Pulse Ox 97 03/22/19 11:55 Weight - Most Recent: 220 lb Lab Results Last 24 Hours: Laboratory Results - last 24 hr 03/21/19 03/21/19 03/22/19 Range/Units 17:29 19:39 07:34 POC Glucose 187 H 222 H 140 H (75-105) mg/dl 03/22/19 Range/Units 11:32 POC Glucose 132 H (75-105) mg/dl [facility] Results Last 24 Hours: Microbiology 03/20/19 21:26 Urine Culture - Final Urine, Voided Escherichia Coli Med Orders - Current: Current Medications Hydrocodone Bitart/Acetaminophen ([place] 325-5 Mg) 1 tab PO Q4H PRN PRN Reason: Pain (moderate 4-6) Last Admin: 03/21/19 13:18 Dose: 1 tab Bupropion HCl (Wellbutrin Xl) 150 mg PO DAILY [facility] Last Admin: 03/22/19 07:38 Dose: 150 mg Ceftriaxone Sodium (Rocephin) 1 gm IVPUSH DAILY@0800 [facility] Last Admin: 03/22/19 07:43 Dose: 1 gm Enoxaparin Sodium (Lovenox) 40 mg SUBCUT Q24H [facility] Last Admin: 03/21/19 17:31 Dose: 40 mg Famotidine (Pepcid) 40 mg PO DAILY [facility] Last Admin: 03/22/19 07:35 Dose: 40 mg Gabapentin (Neurontin) 300 mg PO BID [facility] Last Admin: 03/22/19 07:35 Dose: 300 mg Insulin Glargine (Lantus Solostar) 30 units SUBCUT BID [facility] Last Admin: 03/22/19 08:19 Dose: 30 unit Insulin Human Lispro (Humalog) 20 unit SUBCUT TIDMEALS PRN PRN Reason: Hyperglycemia Levothyroxine Sodium (Synthroid) 75 mcg PO DAILY [facility] Last Admin: 03/22/19 07:37 Dose: 75 mcg Lisinopril (Prinivil) 2.5 mg PO DAILY PRN PRN Reason: Hypertension Morphine Sulfate (Morphine) 2 mg IVPUSH Q2H PRN PRN Reason: Pain (severe 7-10) Ptom Cyclosporine [ Restasis] 0.05% Ophth Soln 1 drop EYEBOTH BID PRN PRN Reason: Dry Eyes Ptom Vortioxetine Hydrobromide [ Trintellix] 20 Mg Tab 20 mg PO DAILY [facility] Last Admin: 03/22/19 07:41 Dose: 20 mg Ondansetron HCl (Zofran Odt) 4 mg PO Q4H PRN PRN Reason: nausea, able to take PO Ondansetron HCl (Zofran) 8 mg IV Q6H PRN PRN Reason: Nausea/Vomiting Quetiapine Fumarate (Seroquel) 50 mg PO DAILY [facility] Last Admin: 03/22/19 07:37 Dose: 50 mg Simvastatin (Zocor) 40 mg PO BEDTIME [facility] Last Admin: 03/21/19 19:36 Dose: 40 mg Sodium Chloride (Saline Flush) 10 ml FLUSH ASDIRECTED PRN PRN Reason: Keep Vein Open Trazodone HCl (Trazodone) 100 mg PO BEDTIME [facility] Last Admin: 03/21/19 19:36 Dose: 100 mg Discontinued Medications Gabapentin (Neurontin) 300 mg PO BID [facility] Last Admin: 03/21/19 07:44 Dose: 300 mg Iopamidol (Isovue-370 (76%)) 100 ml IVPUSH ONETIME ONE Stop: 03/20/19 18:32 Last Admin: 03/20/19 18:41 Dose: 140 ml Non-Formulary Medication (Tresiba) 40 unit SQ BID [facility] Non-Formulary Medication (Tresiba) 30 unit SQ BID [facility] Last Admin: 03/21/19 10:12 Dose: Not Given - Exam General: Alert, Oriented (oriented to person and ) HEENT: Mucous Membr. Moist/[place] Neck: Supple Lungs: Clear to Auscultation, Normal Respiratory Effort Cardiovascular: Regular Rate, Regular Rhythm GI/Abdominal Exam: Normal Bowel Sounds, Soft, Non-Tender Extremities: Normal Inspection, No Pedal Edema Skin: Warm, Dry Neurological: No New Focal Deficit - Problem List & Annotations (1) Left tibial fracture SNOMED Code(s): 95054978 Code(s): S82.202A - UNSP FRACTURE OF SHAFT OF LEFT TIBIA, INIT FOR CLOS FX Status: Acute Priority: High Current Visit: Yes Qualifiers: Encounter type: initial encounter Tibia location: medial malleolus Fracture type: closed Fracture alignment: nondisplaced Qualified Code(s): S82.55XA - Nondisplaced fracture of medial malleolus of left tibia, initial encounter for closed fracture (2) Right fibular fracture SNOMED Code(s): 19192761 Code(s): S82.401A - UNSP FRACTURE OF SHAFT OF RIGHT FIBULA, INIT FOR CLOS FX Status: Acute Priority: High Current Visit: Yes Qualifiers: Encounter type: initial encounter Fibula location: lateral malleolus Fracture type: closed Fracture alignment: nondisplaced Qualified Code(s): S82.64XA - Nondisplaced fracture of lateral malleolus of right fibula, initial encounter for closed fracture (3) Syncope SNOMED Code(s): 883667551 Code(s): R55 - SYNCOPE AND COLLAPSE Status: Acute Priority: High Current Visit: Yes Qualifiers: Encounter type: initial encounter (4) UTI (urinary tract infection) SNOMED Code(s): 37074120 Code(s): N39.0 - URINARY TRACT INFECTION, SITE NOT SPECIFIED Status: Acute Priority: High Current Visit: Yes Qualifiers: Urinary tract infection type: acute cystitis Hematuria presence: without hematuria Qualified Code(s): N30.00 - Acute cystitis without hematuria (5) Confusion SNOMED Code(s): 793965380 Code(s): R41.0 - DISORIENTATION, UNSPECIFIED Status: Acute Priority: High Current Visit: Yes - Problem List Review Problem List Initiated/Reviewed/Updated: Yes - Assessment Assessment:: Left Tibial Fracture Right Fibular Fracture Syncope UTI Disorientation - Plan Plan:: Patient resting comfortably at the edge of the bed. Denies pain now in his legs , states much improved since cast/boot applied. Does have concerns with urination, states hard to void if can't stand. Is no weight bearing at present due to bilateral fractures. Also noted to have UTI. Had syncopal episode day prior with the fall resulting in fractures. Presented to clinic to see Dr. Toscano due to ongoing pain. He relates he has near syncope at times but typically feels it coming on and can sit down or lean on something and doesn't usually faint. States was getting up to the bathroom and awoke in the door frame. Denies feeling lightheaded today. No chest pain or shortness of breath. Will continue to provide assist with transfers due to no weight bearing. Physical therapy for ROM. Start Ceftriaxone for UTI. managed services consultant to work with patient regarding placement at [facility]. 03-22-2019 No status change in patient today. Did slip to the floor last evening when tried to sit up at the edge of bed per self to use urinal and slipped down on to his buttocks. No injuries were noted. Vital signs stable. Has no increased pain today. Does still question if he can bear weight as it is easier to void standing up. Splint and cam boot intact to lower extremities. No edema. and staff do report he is more confused at times. states he has moments like this at home as well. Mini mental exam done, did score a 26 /30. Urine culture positive for e coli, covered by Rocephin. Will continue with PT. Nursing assist due to no weight bearing. Possible placement at [facility] next week.
[2019-03-22] MEDS: Enoxaparin 40 MG/0.4 ML Syringe SUBCUT SCH (16:12)
[2019-03-22] MEDS: Simvastatin 40 MG Tab PO SCH (19:30)
[2019-03-22] MEDS: traZODone 50 MG Tab PO SCH (19:30)
[2019-03-23] MEDS: Gabapentin 300 MG Cap PO SCH ×2 (08:02→19:33)
[2019-03-23] MEDS: Levothyroxine 50 MCG Tab PO SCH (08:02)
[2019-03-23] MEDS: QUEtiapine 25 MG Tab PO SCH (08:02)
[2019-03-23] MEDS: buPROPion 150 MG Tab.ER PO SCH (08:03)
[2019-03-23] MEDS: Famotidine 20 MG Tab PO SCH (08:03)
[2019-03-23] MEDS: VORTIOXETINE HYDROBROMIDE 20 MG PO SCH (08:04)
[2019-03-23] MEDS: cefTRIAXone 1 GM Vial IVPUSH SCH (08:05)
[2019-03-23] MEDS: Insulin Glargine,Human Rec. Analog 100 Units/ML 3 ML Pen SUBCUT SCH ×2 (08:09→19:33)
--- NOTE | 2019-03-23 09:29 | PCM.PN ---
- General Info Date of Service: 03/23/19 Admission Dx/Problem (Free Text): Bilateral Ankle Fractures Syncope Functional Status: Reports: Pain Controlled - Review of Systems General: Reports: No Symptoms HEENT: Reports: No Symptoms Pulmonary: Reports: No Symptoms Cardiovascular: Reports: No Symptoms Gastrointestinal: Reports: Constipation. Denies: Abdominal Pain Genitourinary: Reports: No Symptoms Musculoskeletal: Reports: Other (pain controlled to ankles bilaterally with splint/boots on.) Neurological: Reports: No Symptoms - Patient Data Vitals - Most Recent: Last Vital Signs Temp 96.7 F 03/23/19 08:00 Pulse 92 03/23/19 08:00 Resp 20 03/23/19 08:00 BP 132/70 03/23/19 08:00 Pulse Ox 97 03/23/19 08:00 Weight - Most Recent: 220 lb I&O - Last 24 Hours: Intake & Output 03/22/19 03/23/19 03/23/19 22:59 06:59 14:59 Intake Total 200 Balance 200 Lab Results Last 24 Hours: Laboratory Results - last 24 hr 03/22/19 03/22/19 03/22/19 Range/Units 11:32 17:12 19:29 POC Glucose 132 H 140 H 159 H (75-105) mg/dl 03/23/19 Range/Units 08:00 POC Glucose 114 H (75-105) mg/dl Evangelista Results Last 24 Hours: Microbiology 03/20/19 21:26 Urine Culture - Final Urine, Voided Escherichia Coli Med Orders - Current: Current Medications Hydrocodone Bitart/Acetaminophen ([place] 325-5 Mg) 1 tab PO Q4H PRN PRN Reason: Pain (moderate 4-6) Last Admin: 03/21/19 13:18 Dose: 1 tab Bupropion HCl (Wellbutrin Xl) 150 mg PO DAILY [facility] Last Admin: 03/23/19 08:03 Dose: 150 mg Ceftriaxone Sodium (Rocephin) 1 gm IVPUSH DAILY@0800 [facility] Last Admin: 03/23/19 08:05 Dose: 1 gm Enoxaparin Sodium (Lovenox) 40 mg SUBCUT Q24H [facility] Last Admin: 03/22/19 16:12 Dose: 40 mg Famotidine (Pepcid) 40 mg PO DAILY [facility] Last Admin: 03/23/19 08:03 Dose: 40 mg Gabapentin (Neurontin) 300 mg PO BID [facility] Last Admin: 03/23/19 08:02 Dose: 300 mg Insulin Glargine (Lantus Solostar) 30 units SUBCUT BID [facility] Last Admin: 03/23/19 08:09 Dose: 30 unit Insulin Human Lispro (Humalog) 20 unit SUBCUT TIDMEALS PRN PRN Reason: Hyperglycemia Levothyroxine Sodium (Synthroid) 75 mcg PO DAILY [facility] Last Admin: 03/23/19 08:02 Dose: 75 mcg Lisinopril (Prinivil) 2.5 mg PO DAILY PRN PRN Reason: Hypertension Morphine Sulfate (Morphine) 2 mg IVPUSH Q2H PRN PRN Reason: Pain (severe 7-10) Ptom Cyclosporine [ Restasis] 0.05% Ophth Soln 1 drop EYEBOTH BID PRN PRN Reason: Dry Eyes Ptom Vortioxetine Hydrobromide [ Trintellix] 20 Mg Tab 20 mg PO DAILY [facility] Last Admin: 03/23/19 08:04 Dose: 20 mg Ondansetron HCl (Zofran Odt) 4 mg PO Q4H PRN PRN Reason: nausea, able to take PO Ondansetron HCl (Zofran) 8 mg IV Q6H PRN PRN Reason: Nausea/Vomiting Quetiapine Fumarate (Seroquel) 50 mg PO DAILY [facility] Last Admin: 03/23/19 08:02 Dose: 50 mg Simvastatin (Zocor) 40 mg PO BEDTIME [facility] Last Admin: 03/22/19 19:30 Dose: 40 mg Sodium Chloride (Saline Flush) 10 ml FLUSH ASDIRECTED PRN PRN Reason: Keep Vein Open Trazodone HCl (Trazodone) 100 mg PO BEDTIME [facility] Last Admin: 03/22/19 19:30 Dose: 100 mg Discontinued Medications Gabapentin (Neurontin) 300 mg PO BID [facility] Last Admin: 03/21/19 07:44 Dose: 300 mg Iopamidol (Isovue-370 (76%)) 100 ml IVPUSH ONETIME ONE Stop: 03/20/19 18:32 Last Admin: 03/20/19 18:41 Dose: 140 ml Non-Formulary Medication (Tresiba) 40 unit SQ BID [facility] Non-Formulary Medication (Tresiba) 30 unit SQ BID [facility] Last Admin: 03/21/19 10:12 Dose: Not Given - Exam Quality Assessment: No: Supplemental Oxygen General: Alert, Oriented, Cooperative Neck: Supple Lungs: Clear to Auscultation, Normal Respiratory Effort Cardiovascular: Regular Rate, Regular Rhythm GI/Abdominal Exam: Normal Bowel Sounds, Soft, Non-Tender Extremities: Other (splints on to ankles bilaterally. Denies pain with splints on.) Skin: Warm, Dry, Intact Psy/Mental Status: Alert, Normal Mood - Problem List & Annotations (1) Left tibial fracture SNOMED Code(s): 89107672 Code(s): S82.202A - UNSP FRACTURE OF SHAFT OF LEFT TIBIA, INIT FOR CLOS FX Status: Acute Priority: High Current Visit: Yes Qualifiers: Encounter type: initial encounter Tibia location: medial malleolus Fracture type: closed Fracture alignment: nondisplaced Qualified Code(s): S82.55XA - Nondisplaced fracture of medial malleolus of left tibia, initial encounter for closed fracture (2) Right fibular fracture SNOMED Code(s): 43485084 Code(s): S82.401A - UNSP FRACTURE OF SHAFT OF RIGHT FIBULA, INIT FOR CLOS FX Status: Acute Priority: High Current Visit: Yes Qualifiers: Encounter type: initial encounter Fibula location: lateral malleolus Fracture type: closed Fracture alignment: nondisplaced Qualified Code(s): S82.64XA - Nondisplaced fracture of lateral malleolus of right fibula, initial encounter for closed fracture (3) Syncope SNOMED Code(s): 250192985 Code(s): R55 - SYNCOPE AND COLLAPSE Status: Acute Priority: High Current Visit: Yes Qualifiers: Encounter type: initial encounter - Problem List Review Problem List Initiated/Reviewed/Updated: Yes - Assessment Assessment:: Left Tibial Fracture Right Fibular Fracture Syncope UTI Disorientation - Plan Plan:: Patient resting comfortably at the edge of the bed. Denies pain now in his legs , states much improved since cast/boot applied. Does have concerns with urination, states hard to void if can't stand. Is no weight bearing at present due to bilateral fractures. Also noted to have UTI. Had syncopal episode day prior with the fall resulting in fractures. Presented to clinic to see Dr. Toscano due to ongoing pain. He relates he has near syncope at times but typically feels it coming on and can sit down or lean on something and doesn't usually faint. States was getting up to the bathroom and awoke in the door frame. Denies feeling lightheaded today. No chest pain or shortness of breath. Will continue to provide assist with transfers due to no weight bearing. Physical therapy for ROM. Start Ceftriaxone for UTI. caregiver services home to work with patient regarding placement at [facility]. 03-22-2019 No status change in patient today. Did slip to the floor last evening when tried to sit up at the edge of bed per self to use urinal and slipped down on to his buttocks. No injuries were noted. Vital signs stable. Has no increased pain today. Does still question if he can bear weight as it is easier to void standing up. Splint and cam boot intact to lower extremities. No edema. and staff do report he is more confused at times. states he has moments like this at home as well. Mini mental exam done, did score a 26 /30. Urine culture positive for e coli, covered by Radha. Will continue with PT. Nursing assist due to no weight bearing. Possible placement at [facility] next week. 03-23-19 No status change noted today. Had good night. Feels that he is getting constipated which is a chronic problem for him. He does have orders for meds as needed. Will continue with PT and stregthening and [facility] in the future.
[2019-03-23] MEDS ORDERED: Magnesium Hydroxide 400 MG/5 ML Susp 30 ML Cup PO PRN (11:11)
[2019-03-23] MEDS: Polyethylene Glycol 3350 Powder 17 GM Packet PO SCH (11:48)
[2019-03-23] MEDS: Enoxaparin 40 MG/0.4 ML Syringe SUBCUT SCH (17:22)
[2019-03-23] MEDS: traZODone 50 MG Tab PO SCH (19:32)
[2019-03-23] MEDS: Simvastatin 40 MG Tab PO SCH (19:33)
[2019-03-24] MEDS: cefTRIAXone 1 GM Vial IVPUSH SCH (08:09)
[2019-03-24] MEDS: Polyethylene Glycol 3350 Powder 17 GM Packet PO SCH (08:13)
[2019-03-24] MEDS: buPROPion 150 MG Tab.ER PO SCH (08:14)
[2019-03-24] MEDS: Gabapentin 300 MG Cap PO SCH ×2 (08:15→19:38)
[2019-03-24] MEDS: Levothyroxine 50 MCG Tab PO SCH (08:15)
[2019-03-24] MEDS: QUEtiapine 25 MG Tab PO SCH (08:16)
[2019-03-24] MEDS: Famotidine 20 MG Tab PO SCH (08:18)
[2019-03-24] MEDS: VORTIOXETINE HYDROBROMIDE 20 MG PO SCH (08:19)
[2019-03-24] MEDS: Insulin Glargine,Human Rec. Analog 100 Units/ML 3 ML Pen SUBCUT SCH ×2 (08:20→19:40)
--- NOTE | 2019-03-24 08:55 | PCM.PN ---
- General Info Date of Service: 03/24/19 Admission Dx/Problem (Free Text): Bilateral Ankle Fractures Syncope Functional Status: Reports: Pain Controlled Pain Score: 0 - Review of Systems General: Reports: No Symptoms HEENT: Reports: No Symptoms Pulmonary: Reports: No Symptoms Cardiovascular: Reports: No Symptoms Gastrointestinal: Reports: Constipation, [place] Musculoskeletal: Reports: Other (bilateral fractured ankles.) Neurological: Reports: No Symptoms - Patient Data Vitals - Most Recent: Last Vital Signs Temp 98.2 F 03/24/19 07:45 Pulse 90 03/24/19 07:45 Resp 20 03/24/19 07:45 BP 127/68 03/24/19 07:45 Pulse Ox 97 03/24/19 07:45 Weight - Most Recent: 220 lb I&O - Last 24 Hours: Intake & Output 03/23/19 03/24/19 03/24/19 22:59 06:59 14:59 Intake Total 200 Balance 200 Lab Results Last 24 Hours: Laboratory Results - last 24 hr 03/23/19 03/23/19 03/24/19 Range/Units 11:51 17:21 07:52 POC Glucose 128 H 119 H 188 H (75-105) mg/dl Med Orders - Current: Current Medications Hydrocodone Bitart/Acetaminophen ([place] 325-5 Mg) 1 tab PO Q4H PRN PRN Reason: Pain (moderate 4-6) Last Admin: 03/21/19 13:18 Dose: 1 tab Bupropion HCl (Wellbutrin Xl) 150 mg PO DAILY [facility] Last Admin: 03/24/19 08:14 Dose: 150 mg Ceftriaxone Sodium (Rocephin) 1 gm IVPUSH DAILY@0800 [facility] Last Admin: 03/24/19 08:09 Dose: 1 gm Enoxaparin Sodium (Lovenox) 40 mg SUBCUT Q24H [facility] Last Admin: 03/23/19 17:22 Dose: 40 mg Famotidine (Pepcid) 40 mg PO DAILY [facility] Last Admin: 03/24/19 08:18 Dose: 40 mg Gabapentin (Neurontin) 300 mg PO BID [facility] Last Admin: 03/24/19 08:15 Dose: 300 mg Insulin Glargine (Lantus Solostar) 30 units SUBCUT BID [facility] Last Admin: 03/24/19 08:20 Dose: 30 unit Insulin Human Lispro (Humalog) 20 unit SUBCUT TIDMEALS PRN PRN Reason: Hyperglycemia Levothyroxine Sodium (Synthroid) 75 mcg PO DAILY [facility] Last Admin: 03/24/19 08:15 Dose: 75 mcg Lisinopril (Prinivil) 2.5 mg PO DAILY PRN PRN Reason: Hypertension Magnesium Hydroxide (Milk Of Magnesia) 30 ml PO DAILY PRN PRN Reason: Constipation Morphine Sulfate (Morphine) 2 mg IVPUSH Q2H PRN PRN Reason: Pain (severe 7-10) Ptom Cyclosporine [ Restasis] 0.05% Ophth Soln 1 drop EYEBOTH BID PRN PRN Reason: Dry Eyes Ptom Vortioxetine Hydrobromide [ Trintellix] 20 Mg Tab 20 mg PO DAILY [facility] Last Admin: 03/24/19 08:19 Dose: 20 mg Ondansetron HCl (Zofran Odt) 4 mg PO Q4H PRN PRN Reason: nausea, able to take PO Ondansetron HCl (Zofran) 8 mg IV Q6H PRN PRN Reason: Nausea/Vomiting Polyethylene Glycol (Miralax) 17 gm PO DAILY [facility] Last Admin: 03/24/19 08:13 Dose: 17 gm Quetiapine Fumarate (Seroquel) 50 mg PO DAILY [facility] Last Admin: 03/24/19 08:16 Dose: 50 mg Simvastatin (Zocor) 40 mg PO BEDTIME [facility] Last Admin: 03/23/19 19:33 Dose: 40 mg Sodium Chloride (Saline Flush) 10 ml FLUSH ASDIRECTED PRN PRN Reason: Keep Vein Open Trazodone HCl (Trazodone) 100 mg PO BEDTIME [facility] Last Admin: 03/23/19 19:32 Dose: 100 mg Discontinued Medications Gabapentin (Neurontin) 300 mg PO BID [facility] Last Admin: 03/21/19 07:44 Dose: 300 mg Iopamidol (Isovue-370 (76%)) 100 ml IVPUSH ONETIME ONE Stop: 03/20/19 18:32 Last Admin: 03/20/19 18:41 Dose: 140 ml Non-Formulary Medication (Tresiba) 40 unit SQ BID [facility] Non-Formulary Medication (Tresiba) 30 unit SQ BID [facility] Last Admin: 03/21/19 10:12 Dose: Not Given - Exam Quality Assessment: No: Supplemental Oxygen General: Alert, Oriented Neck: Supple Lungs: Clear to Auscultation, Normal Respiratory Effort Cardiovascular: Regular Rate, Regular Rhythm GI/Abdominal Exam: Normal Bowel Sounds, Soft, Non-Tender Back Exam: Normal Inspection, Full Range of Motion Extremities: Other (Has bilateral splinting noted and are intact. toes have good CMS. No swelling noted.) Skin: Warm, Dry, Intact Psy/Mental Status: Alert, Normal Affect, Normal Mood - Problem List & Annotations (1) Left tibial fracture SNOMED Code(s): 13528994 Code(s): S82.202A - UNSP FRACTURE OF SHAFT OF LEFT TIBIA, INIT FOR CLOS FX Status: Acute Priority: High Current Visit: Yes Qualifiers: Encounter type: initial encounter Tibia location: medial malleolus Fracture type: closed Fracture alignment: nondisplaced Qualified Code(s): S82.55XA - Nondisplaced fracture of medial malleolus of left tibia, initial encounter for closed fracture (2) Right fibular fracture SNOMED Code(s): 91702936 Code(s): S82.401A - UNSP FRACTURE OF SHAFT OF RIGHT FIBULA, INIT FOR CLOS FX Status: Acute Priority: High Current Visit: Yes Qualifiers: Encounter type: initial encounter Fibula location: lateral malleolus Fracture type: closed Fracture alignment: nondisplaced Qualified Code(s): S82.64XA - Nondisplaced fracture of lateral malleolus of right fibula, initial encounter for closed fracture (3) Syncope SNOMED Code(s): 149565575 Code(s): R55 - SYNCOPE AND COLLAPSE Status: Acute Priority: High Current Visit: Yes Qualifiers: Encounter type: initial encounter - Problem List Review Problem List Initiated/Reviewed/Updated: Yes - My Orders Last 24 Hours: My Active Orders 03/23/19 11:11 Magnesium Hydroxide [Milk of Magnesia] 30 ml PO DAILY PRN 03/23/19 11:15 Polyethylene Glycol 3350 [MiraLAX] 17 gm PO DAILY - Assessment Assessment:: Left Tibial Fracture Right Fibular Fracture Syncope UTI Disorientation - Plan Plan:: Patient resting comfortably at the edge of the bed. Denies pain now in his legs , states much improved since cast/boot applied. Does have concerns with urination, states hard to void if can't stand. Is no weight bearing at present due to bilateral fractures. Also noted to have UTI. Had syncopal episode day prior with the fall resulting in fractures. Presented to clinic to see Dr. Toscano due to ongoing pain. He relates he has near syncope at times but typically feels it coming on and can sit down or lean on something and doesn't usually faint. States was getting up to the bathroom and awoke in the door frame. Denies feeling lightheaded today. No chest pain or shortness of breath. Will continue to provide assist with transfers due to no weight bearing. Physical therapy for ROM. Start Ceftriaxone for UTI. creative services specialist to work with patient regarding placement at [facility]. 03-22-2019 No status change in patient today. Did slip to the floor last evening when tried to sit up at the edge of bed per self to use urinal and slipped down on to his buttocks. No injuries were noted. Vital signs stable. Has no increased pain today. Does still question if he can bear weight as it is easier to void standing up. Splint and cam boot intact to lower extremities. No edema. and staff do report he is more confused at times. states he has moments like this at home as well. Mini mental exam done, did score a 26 /30. Urine culture positive for e coli, covered by Rocephin. Will continue with PT. Nursing assist due to no weight bearing. Possible placement at [facility] next week. 03-23-19 No status change noted today. Had good night. Feels that he is getting constipated which is a chronic problem for him. He does have orders for meds as needed. Will continue with PT and stregthening and GS in the future. 03-24-19 Will monitor his constipation closely. No other changes today. Had good night. Will continue with pt as ordered in the AM.
[2019-03-24] MEDS: Enoxaparin 40 MG/0.4 ML Syringe SUBCUT SCH (16:32)
[2019-03-24] MEDS: Simvastatin 40 MG Tab PO SCH (19:38)
[2019-03-24] MEDS: traZODone 50 MG Tab PO SCH (19:38)
[2019-03-25] MEDS: cefTRIAXone 1 GM Vial IVPUSH SCH (07:50)
[2019-03-25] MEDS: Polyethylene Glycol 3350 Powder 17 GM Packet PO SCH (07:50)
[2019-03-25] MEDS: QUEtiapine 25 MG Tab PO SCH (07:50)
[2019-03-25] MEDS: Levothyroxine 50 MCG Tab PO SCH (07:51)
[2019-03-25] MEDS: Famotidine 20 MG Tab PO SCH (07:51)
[2019-03-25] MEDS: buPROPion 150 MG Tab.ER PO SCH (07:52)
[2019-03-25] MEDS: Gabapentin 300 MG Cap PO SCH ×2 (07:52→20:53)
[2019-03-25] MEDS: VORTIOXETINE HYDROBROMIDE 20 MG PO SCH (07:53)
[2019-03-25] MEDS: Insulin Glargine,Human Rec. Analog 100 Units/ML 3 ML Pen SUBCUT SCH ×2 (07:53→20:55)
--- NOTE | 2019-03-25 09:22 | PCM.PN ---
- General Info Date of Service: 03/25/19 Admission Dx/Problem (Free Text): Bilateral Ankle Fractures Syncope Functional Status: Reports: Pain Controlled, Tolerating Diet. Denies: Ambulating - Review of Systems General: Reports: Weakness. Denies: Fever, Fatigue, Malaise HEENT: Reports: No Symptoms Pulmonary: Denies: Shortness of Breath, Cough Cardiovascular: Denies: Chest Pain, Edema, Lightheadedness Gastrointestinal: Denies: Abdominal Pain, Nausea, Vomiting Genitourinary: Reports: No Symptoms Musculoskeletal: Reports: Leg Pain (minimal to no pain with range of motion in bed) Skin: Reports: No Symptoms Neurological: Reports: Confusion - Patient Data Vitals - Most Recent: Last Vital Signs Temp 97.8 F 03/25/19 07:58 Pulse 76 03/25/19 07:58 Resp 16 03/25/19 07:58 BP 128/59 L 03/25/19 07:58 Pulse Ox 98 03/25/19 07:58 Weight - Most Recent: 220 lb I&O - Last 24 Hours: Intake & Output 03/24/19 03/25/19 03/25/19 22:59 06:59 14:59 Intake Total 200 Balance 200 Lab Results Last 24 Hours: Laboratory Results - last 24 hr 03/24/19 03/25/19 Range/Units 19:57 07:49 POC Glucose 227 H 118 H (75-105) mg/dl Med Orders - Current: Current Medications Hydrocodone Bitart/Acetaminophen ([place] 325-5 Mg) 1 tab PO Q4H PRN PRN Reason: Pain (moderate 4-6) Last Admin: 03/21/19 13:18 Dose: 1 tab Bupropion HCl (Wellbutrin Xl) 150 mg PO DAILY [facility] Last Admin: 03/25/19 07:52 Dose: 150 mg Ceftriaxone Sodium (Rocephin) 1 gm IVPUSH DAILY@0800 [facility] Last Admin: 03/25/19 07:50 Dose: 1 gm Donepezil HCl (Aricept) 5 mg PO BEDTIME [facility] Enoxaparin Sodium (Lovenox) 40 mg SUBCUT Q24H [facility] Last Admin: 03/24/19 16:32 Dose: 40 mg Famotidine (Pepcid) 40 mg PO DAILY [facility] Last Admin: 03/25/19 07:51 Dose: 40 mg Gabapentin (Neurontin) 300 mg PO BID [facility] Last Admin: 03/25/19 07:52 Dose: 300 mg Insulin Glargine (Lantus Solostar) 30 units SUBCUT BID [facility] Last Admin: 03/25/19 07:53 Dose: 30 unit Insulin Human Lispro (Humalog) 20 unit SUBCUT TIDMEALS PRN PRN Reason: Hyperglycemia Levothyroxine Sodium (Synthroid) 75 mcg PO DAILY [facility] Last Admin: 03/25/19 07:51 Dose: 75 mcg Lisinopril (Prinivil) 2.5 mg PO DAILY PRN PRN Reason: Hypertension Magnesium Hydroxide (Milk Of Magnesia) 30 ml PO DAILY PRN PRN Reason: Constipation Last Admin: 03/24/19 13:55 Dose: 30 ml Morphine Sulfate (Morphine) 2 mg IVPUSH Q2H PRN PRN Reason: Pain (severe 7-10) Ptom Cyclosporine [ Restasis] 0.05% Ophth Soln 1 drop EYEBOTH BID PRN PRN Reason: Dry Eyes Last Admin: 03/25/19 07:57 Dose: 1 drop Ptom Vortioxetine Hydrobromide [ Trintellix] 20 Mg Tab 20 mg PO DAILY [facility] Last Admin: 03/25/19 07:53 Dose: 20 mg Ondansetron HCl (Zofran Odt) 4 mg PO Q4H PRN PRN Reason: nausea, able to take PO Ondansetron HCl (Zofran) 8 mg IV Q6H PRN PRN Reason: Nausea/Vomiting Polyethylene Glycol (Miralax) 17 gm PO DAILY [facility] Last Admin: 03/25/19 07:50 Dose: 17 gm Quetiapine Fumarate (Seroquel) 50 mg PO DAILY [facility] Last Admin: 03/25/19 07:50 Dose: 50 mg Simvastatin (Zocor) 40 mg PO BEDTIME [facility] Last Admin: 03/24/19 19:38 Dose: 40 mg Sodium Chloride (Saline Flush) 10 ml FLUSH ASDIRECTED PRN PRN Reason: Keep Vein Open Trazodone HCl (Trazodone) 100 mg PO BEDTIME [facility] Last Admin: 03/24/19 19:38 Dose: 100 mg Discontinued Medications Gabapentin (Neurontin) 300 mg PO BID [facility] Last Admin: 03/21/19 07:44 Dose: 300 mg Iopamidol (Isovue-370 (76%)) 100 ml IVPUSH ONETIME ONE Stop: 03/20/19 18:32 Last Admin: 03/20/19 18:41 Dose: 140 ml Non-Formulary Medication (Tresiba) 40 unit SQ BID [facility] Non-Formulary Medication (Tresiba) 30 unit SQ BID [facility] Last Admin: 03/21/19 10:12 Dose: Not Given - Exam General: Alert, Oriented HEENT: Mucous Membr. Moist/[place] Neck: Supple Lungs: Clear to Auscultation, Normal Respiratory Effort Cardiovascular: Regular Rate, Regular Rhythm Extremities: Normal Inspection, No Pedal Edema Skin: Warm, Dry Neurological: No New Focal Deficit - Problem List & Annotations (1) Left tibial fracture SNOMED Code(s): 54286579 Code(s): S82.202A - UNSP FRACTURE OF SHAFT OF LEFT TIBIA, INIT FOR CLOS FX Status: Acute Priority: High Current Visit: Yes Qualifiers: Encounter type: initial encounter Tibia location: medial malleolus Fracture type: closed Fracture alignment: nondisplaced Qualified Code(s): S82.55XA - Nondisplaced fracture of medial malleolus of left tibia, initial encounter for closed fracture (2) Right fibular fracture SNOMED Code(s): 64081995 Code(s): S82.401A - UNSP FRACTURE OF SHAFT OF RIGHT FIBULA, INIT FOR CLOS FX Status: Acute Priority: High Current Visit: Yes Qualifiers: Encounter type: initial encounter Fibula location: lateral malleolus Fracture type: closed Fracture alignment: nondisplaced Qualified Code(s): S82.64XA - Nondisplaced fracture of lateral malleolus of right fibula, initial encounter for closed fracture (3) Syncope SNOMED Code(s): 966713342 Code(s): R55 - SYNCOPE AND COLLAPSE Status: Acute Priority: High Current Visit: Yes Qualifiers: Encounter type: initial encounter (4) UTI (urinary tract infection) SNOMED Code(s): 95511464 Code(s): N39.0 - URINARY TRACT INFECTION, SITE NOT SPECIFIED Status: Acute Priority: High Current Visit: Yes Qualifiers: Urinary tract infection type: acute cystitis Hematuria presence: without hematuria Qualified Code(s): N30.00 - Acute cystitis without hematuria (5) Confusion SNOMED Code(s): 375758662 Code(s): R41.0 - DISORIENTATION, UNSPECIFIED Status: Acute Priority: High Current Visit: Yes - Problem List Review Problem List Initiated/Reviewed/Updated: Yes - My Orders Last 24 Hours: My Active Orders 03/25/19 09:01 VITAMIN B12 [CHEM] Routine 03/25/19 20:00 Donepezil [Aricept] 5 mg PO BEDTIME - Assessment Assessment:: Left Tibial Fracture Right Fibular Fracture Syncope UTI Disorientation - Plan Plan:: Patient resting comfortably at the edge of the bed. Denies pain now in his legs , states much improved since cast/boot applied. Does have concerns with urination, states hard to void if can't stand. Is no weight bearing at present due to bilateral fractures. Also noted to have UTI. Had syncopal episode day prior with the fall resulting in fractures. Presented to clinic to see Dr. Toscano due to ongoing pain. He relates he has near syncope at times but typically feels it coming on and can sit down or lean on something and doesn't usually faint. States was getting up to the bathroom and awoke in the door frame. Denies feeling lightheaded today. No chest pain or shortness of breath. Will continue to provide assist with transfers due to no weight bearing. Physical therapy for ROM. Start Ceftriaxone for UTI. social services technician to work with patient regarding placement at [facility]. 03-22-2019 No status change in patient today. Did slip to the floor last evening when tried to sit up at the edge of bed per self to use urinal and slipped down on to his buttocks. No injuries were noted. Vital signs stable. Has no increased pain today. Does still question if he can bear weight as it is easier to void standing up. Splint and cam boot intact to lower extremities. No edema. and staff do report he is more confused at times. states he has moments like this at home as well. Mini mental exam done, did score a 26 /30. Urine culture positive for e coli, covered by Rocephin. Will continue with PT. Nursing assist due to no weight bearing. Possible placement at [facility] next week. 03-23-19 No status change noted today. Had good night. Feels that he is getting constipated which is a chronic problem for him. He does have orders for meds as needed. [facility] with [facility] and [facility] in the future. 03-24-19 Will monitor his constipation closely. No other changes today. Had good night. Will continue with pt as ordered in the AM. 03-25-2019 Patient feeling good this am. Staff reports has increased confusion at night, has not improved with use of Rocephin to cover his UTI. Patient has no recall of events last night where he was found at the bottom of his bed. Patient states has minimal to no pain with movement of his legs while in bed. Splint and one step intact to lower extremities. Is still having issues with constipation, is currently on Miralax every day. Patient is not concerned with this, states not unusual for him to go a week without a BM. Is not uncomfortable at this point. Has good bowel sounds, no abdominal pain. As mini mental 26/30 and confusion not improving despite antibiotics, will start Aricept 5 mg at bedtime. Obtain a MRI on Monday. Continue PT. Plan is to transfer patient to [facility] once insurance approval obtained.
[2019-03-25] MEDS: Enoxaparin 40 MG/0.4 ML Syringe SUBCUT SCH (16:22)
[2019-03-25] MEDS: Donepezil 5 MG Tab PO SCH (20:53)
[2019-03-25] MEDS: traZODone 50 MG Tab PO SCH (20:53)
[2019-03-25] MEDS: Simvastatin 40 MG Tab PO SCH (20:53)
[2019-03-26] MEDS: Famotidine 20 MG Tab PO SCH (08:04)
[2019-03-26] MEDS: cefTRIAXone 1 GM Vial IVPUSH SCH (08:04)
[2019-03-26] MEDS: VORTIOXETINE HYDROBROMIDE 20 MG PO SCH (08:04)
[2019-03-26] MEDS: QUEtiapine 25 MG Tab PO SCH (08:05)
[2019-03-26] MEDS: Levothyroxine 50 MCG Tab PO SCH (08:05)
[2019-03-26] MEDS: Gabapentin 300 MG Cap PO SCH ×2 (08:05→19:27)
[2019-03-26] MEDS: buPROPion 150 MG Tab.ER PO SCH (08:06)
[2019-03-26] MEDS: Polyethylene Glycol 3350 Powder 17 GM Packet PO SCH (08:07)
[2019-03-26] MEDS: Insulin Glargine,Human Rec. Analog 100 Units/ML 3 ML Pen SUBCUT SCH ×2 (08:15→20:20)
[2019-03-26] MEDS: Acetaminophen/HYDROcodone 325-5 MG Tab PO PRN (16:05)
[2019-03-26] MEDS: traZODone 50 MG Tab PO SCH (19:27)
[2019-03-26] MEDS: Donepezil 5 MG Tab PO SCH (19:27)
[2019-03-26] MEDS: Simvastatin 40 MG Tab PO SCH (19:30)
--- NOTE | 2019-03-26 21:39 | PCM.PN ---
- General Info Date of Service: 03/26/19 Admission Dx/Problem (Free Text): Bilateral Ankle Fractures Syncope Functional Status: Reports: Pain Controlled, Tolerating Diet. Denies: Ambulating - Review of Systems General: Reports: Weakness HEENT: Reports: No Symptoms Pulmonary: Denies: Shortness of Breath, Cough Cardiovascular: Denies: Chest Pain, Edema, Lightheadedness Gastrointestinal: Denies: Abdominal Pain, Nausea, Vomiting Genitourinary: Reports: No Symptoms Musculoskeletal: Reports: Leg Pain (little to no leg pain) Skin: Reports: No Symptoms Neurological: Reports: Weakness - Patient Data Vitals - Most Recent: Last Vital Signs Temp 98.8 F 03/26/19 20:00 Pulse 79 03/26/19 20:00 Resp 20 03/26/19 20:00 BP 124/62 03/26/19 20:00 Pulse Ox 94 L 03/26/19 20:00 Weight - Most Recent: 220 lb Lab Results Last 24 Hours: Laboratory Results - last 24 hr 03/26/19 Range/Units 08:12 POC Glucose 147 H (75-105) mg/dl Med Orders - Current: Current Medications Hydrocodone Bitart/Acetaminophen ([place] 325-5 Mg) 1 tab PO Q4H PRN PRN Reason: Pain (moderate 4-6) Last Admin: 03/26/19 16:05 Dose: 1 tab Bupropion HCl (Wellbutrin Xl) 150 mg PO DAILY [facility] Last Admin: 03/26/19 08:06 Dose: 150 mg Ceftriaxone Sodium (Rocephin) 1 gm IVPUSH DAILY@0800 [facility] Last Admin: 03/26/19 08:04 Dose: 1 gm Donepezil HCl (Aricept) 5 mg PO BEDTIME [facility] Last Admin: 03/26/19 19:27 Dose: 5 mg Enoxaparin Sodium (Lovenox) 40 mg SUBCUT Q24H [facility] Last Admin: 03/25/19 16:22 Dose: 40 mg Famotidine (Pepcid) 40 mg PO DAILY [facility] Last Admin: 03/26/19 08:04 Dose: 40 mg Gabapentin (Neurontin) 300 mg PO BID [facility] Last Admin: 03/26/19 19:27 Dose: 300 mg Insulin Glargine (Lantus Solostar) 30 units SUBCUT BID [facility] Last Admin: 03/26/19 20:20 Dose: 30 unit Insulin Human Lispro (Humalog) 20 unit SUBCUT TIDMEALS PRN PRN Reason: Hyperglycemia Levothyroxine Sodium (Synthroid) 75 mcg PO DAILY [facility] Last Admin: 03/26/19 08:05 Dose: 75 mcg Lisinopril (Prinivil) 2.5 mg PO DAILY PRN PRN Reason: Hypertension Magnesium Hydroxide (Milk Of Magnesia) 30 ml PO DAILY PRN PRN Reason: Constipation Last Admin: 03/24/19 13:55 Dose: 30 ml Morphine Sulfate (Morphine) 2 mg IVPUSH Q2H PRN PRN Reason: Pain (severe 7-10) Ptom Cyclosporine [ Restasis] 0.05% Ophth Soln 1 drop EYEBOTH BID PRN PRN Reason: Dry Eyes Last Admin: 03/25/19 07:57 Dose: 1 drop Ptom Vortioxetine Hydrobromide [ Trintellix] 20 Mg Tab 20 mg PO DAILY [facility] Last Admin: 03/26/19 08:04 Dose: 20 mg Ondansetron HCl (Zofran Odt) 4 mg PO Q4H PRN PRN Reason: nausea, able to take PO Ondansetron HCl (Zofran) 8 mg IV Q6H PRN PRN Reason: Nausea/Vomiting Polyethylene Glycol (Miralax) 17 gm PO DAILY [facility] Last Admin: 03/26/19 08:07 Dose: 17 gm Quetiapine Fumarate (Seroquel) 50 mg PO DAILY [facility] Last Admin: 03/26/19 08:05 Dose: 50 mg Simvastatin (Zocor) 40 mg PO BEDTIME [facility] Last Admin: 03/26/19 19:30 Dose: 40 mg Sodium Chloride (Saline Flush) 10 ml FLUSH ASDIRECTED PRN PRN Reason: Keep Vein Open Trazodone HCl (Trazodone) 100 mg PO BEDTIME [facility] Last Admin: 03/26/19 19:27 Dose: 100 mg Discontinued Medications Gabapentin (Neurontin) 300 mg PO BID [facility] Last Admin: 03/21/19 07:44 Dose: 300 mg Iopamidol (Isovue-370 (76%)) 100 ml IVPUSH ONETIME ONE Stop: 03/20/19 18:32 Last Admin: 03/20/19 18:41 Dose: 140 ml Non-Formulary Medication (Tresiba) 40 unit SQ BID [facility] Non-Formulary Medication (Tresiba) 30 unit SQ BID [facility] Last Admin: 03/21/19 10:12 Dose: Not Given - Exam General: Alert, Oriented HEENT: Mucous Membr. Moist/[place] Neck: Supple Lungs: Clear to Auscultation, Normal Respiratory Effort Cardiovascular: Regular Rate, Regular Rhythm GI/Abdominal Exam: Normal Bowel Sounds, Soft, Non-Tender Extremities: Normal Inspection, Limited Range of Motion (cam boot intact to right lower extremity, one step to LLE intact) Skin: Warm, Dry Neurological: No New Focal Deficit - Problem List & Annotations (1) Left tibial fracture SNOMED Code(s): 94905681 Code(s): S82.202A - UNSP FRACTURE OF SHAFT OF LEFT TIBIA, INIT FOR CLOS FX Status: Acute Priority: High Current Visit: Yes Qualifiers: Encounter type: initial encounter Tibia location: medial malleolus Fracture type: closed Fracture alignment: nondisplaced Qualified Code(s): S82.55XA - Nondisplaced fracture of medial malleolus of left tibia, initial encounter for closed fracture (2) Right fibular fracture SNOMED Code(s): 77670324 Code(s): S82.401A - UNSP FRACTURE OF SHAFT OF RIGHT FIBULA, INIT FOR CLOS FX Status: Acute Priority: High Current Visit: Yes Qualifiers: Encounter type: initial encounter Fibula location: lateral malleolus Fracture type: closed Fracture alignment: nondisplaced Qualified Code(s): S82.64XA - Nondisplaced fracture of lateral malleolus of right fibula, initial encounter for closed fracture (3) Syncope SNOMED Code(s): 582087973 Code(s): R55 - SYNCOPE AND COLLAPSE Status: Acute Priority: High Current Visit: Yes Qualifiers: Encounter type: initial encounter (4) UTI (urinary tract infection) SNOMED Code(s): 07168442 Code(s): N39.0 - URINARY TRACT INFECTION, SITE NOT SPECIFIED Status: Acute Priority: High Current Visit: Yes Qualifiers: Urinary tract infection type: acute cystitis Hematuria presence: without hematuria Qualified Code(s): N30.00 - Acute cystitis without hematuria (5) Confusion SNOMED Code(s): 255325177 Code(s): R41.0 - DISORIENTATION, UNSPECIFIED Status: Acute Priority: High Current Visit: Yes - Problem List Review Problem List Initiated/Reviewed/Updated: Yes - Assessment Assessment:: Left Tibial Fracture Right Fibular Fracture Syncope UTI Disorientation - Plan Plan:: Patient resting comfortably at the edge of the bed. Denies pain now in his legs , states much improved since cast/boot applied. Does have concerns with urination, states hard to void if can't stand. Is no weight bearing at present due to bilateral fractures. Also noted to have UTI. Had syncopal episode day prior with the fall resulting in fractures. Presented to clinic to see Dr. Toscano due to ongoing pain. He relates he has near syncope at times but typically feels it coming on and can sit down or lean on something and doesn't usually faint. States was getting up to the bathroom and awoke in the door frame. Denies feeling lightheaded today. No chest pain or shortness of breath. Will continue to provide assist with transfers due to no weight bearing. Physical therapy for ROM. Start Ceftriaxone for UTI. account services analyst to work with patient regarding placement at [facility]. 03-22-2019 No status change in patient today. Did slip to the floor last evening when tried to sit up at the edge of bed per self to use urinal and slipped down on to his buttocks. No injuries were noted. Vital signs stable. Has no increased pain today. Does still question if he can bear weight as it is easier to void standing up. Splint and cam boot intact to lower extremities. No edema. and staff do report he is more confused at times. states he has moments like this at home as well. Mini mental exam done, did score a 26 /30. Urine culture positive for e coli, covered by Rocephin. Will continue with PT. Nursing assist due to no weight bearing. Possible placement at [facility] next week. 03-23-19 No status change noted today. Had good night. Feels that he is getting constipated which is a chronic problem for him. He does have orders for meds as needed. Will continue with PT and stregthening and LHGS in the future. 03-24-19 Will monitor his constipation closely. No other changes today. Had good night. Will continue with pt as ordered in the AM. 03-25-2019 Patient feeling good this am. Staff reports has increased confusion at night, has not improved with use of Rocephin to cover his UTI. Patient has no recall of events last night where he was found at the bottom of his bed. Patient states has minimal to no pain with movement of his legs while in bed. Splint and one step intact to lower extremities. Is still having issues with constipation, is currently on Miralax every day. Patient is not concerned with this, states not unusual for him to go a week without a BM. Is not uncomfortable at this point. Has good bowel sounds, no abdominal pain. As mini mental 26/30 and confusion not improving despite antibiotics, will start Aricept 5 mg at bedtime. Obtain a MRI on Monday. Continue PT. Plan is to transfer patient to [facility] once insurance approval obtained. 03-26-2019 Status unchanged. Continues to have moments of confusion, patient has no recall of events that occur. No pain in his legs, splints intact. Dr. Jiang was contacted per , reviewed xrays. Does feel that surgical correction of right fibular fracture will allow quicker ambulation for that leg and will allow patient to bear weight and return home quicker as insurance only approves longterm stay for 7 days. Arrangements have been made for discharge to [facility] tomorrow. Will continue with same meds, obtain MRI of brain as an outpatient once returns home if needed. Patient and in agreement with plan.
[2019-03-27] MEDS: Famotidine 20 MG Tab PO SCH (07:31)
[2019-03-27] MEDS: Levothyroxine 50 MCG Tab PO SCH (07:31)
[2019-03-27] MEDS: Insulin Glargine,Human Rec. Analog 100 Units/ML 3 ML Pen SUBCUT SCH (07:32)
[2019-03-27 08:48] VITALS: BP 138/74
--- NOTE | 2019-03-27 09:01 | PCM.DCSUM1 ---
Discharge Summary - Hospital Course Free Text/Narrative:: Patient presented to clinic to see Dr. Toscano due to bilateral lower leg pain. He was up to the bathroom, "passed out and fell". states he landed in the doorway, "half in and half out". Was noting increased leg bear and difficulty bearing as a result. Lower legs were swollen but no redness or bruising. On presentation to clinic, denies any lightheadedness. States "has spells like that but normally able to sit down and avoid falls". On exam, both legs tender with exam. No edema noted. Xrays were done which showed bilateral ankle fractures. Right leg placed in cam boot. One step splint applied to left leg. Admitted for syncopal work up and management due to inability to bear weight. Diagnosis: Stroke: No Modified [place] Scale: No Symptoms at All Modified [place] Scale Score: 0 - Discharge Data Discharge Date: 03/27/19 Discharge Disposition: DC/Tfer to Acute Hospital 02 Condition: Good - Discharge Diagnosis/Problem(s) (1) Left tibial fracture SNOMED Code(s): 40608426 ICD Code: S82.202A - UNSP FRACTURE OF SHAFT OF LEFT TIBIA, INIT FOR CLOS FX Status: Acute Priority: High Current Visit: Yes Qualifiers: Encounter type: initial encounter Tibia location: medial malleolus Fracture type: closed Fracture alignment: nondisplaced Qualified Code(s): S82.55XA - Nondisplaced fracture of medial malleolus of left tibia, initial encounter for closed fracture (2) Right fibular fracture SNOMED Code(s): 69559377 ICD Code: S82.401A - UNSP FRACTURE OF SHAFT OF RIGHT FIBULA, INIT FOR CLOS FX Status: Acute Priority: High Current Visit: Yes Qualifiers: Encounter type: initial encounter Fibula location: lateral malleolus Fracture type: closed Fracture alignment: nondisplaced Qualified Code(s): S82.64XA - Nondisplaced fracture of lateral malleolus of right fibula, initial encounter for closed fracture (3) Syncope SNOMED Code(s): 727906427 ICD Code: R55 - SYNCOPE AND COLLAPSE Status: Acute Priority: High Current Visit: Yes Qualifiers: Encounter type: initial encounter (4) UTI (urinary tract infection) SNOMED Code(s): 41155718 ICD Code: N39.0 - URINARY TRACT INFECTION, SITE NOT SPECIFIED Status: Acute Priority: High Current Visit: Yes Qualifiers: Urinary tract infection type: acute cystitis Hematuria presence: without hematuria Qualified Code(s): N30.00 - Acute cystitis without hematuria (5) Confusion SNOMED Code(s): 321499120 ICD Code: R41.0 - DISORIENTATION, UNSPECIFIED Status: Acute Priority: High Current Visit: Yes - Patient Summary/Data Complications: none Consults: Consultations 03/20/19 16:50 Consult to Case Management/Beef Cattle Farmer [CONS] Routine 03/20/19 17:03 Consult to Physical Therapy [PT Evaluation and Treatment] [CONS] Routine Hospital Course: Patient's stay has been uneventful. Has - Patient Instructions Diet: Diabetic Diet Activity: Non Weight Bearing - Discharge Plan *PRESCRIPTION DRUG MONITORING PROGRAM REVIEWED*: No *COPY OF PRESCRIPTION DRUG MONITORING REPORT IN PATIENT TAYO: No Prescriptions/Med Rec: Donepezil [Aricept] 5 mg PO BEDTIME #30 tablet Polyethylene Glycol 3350 [MiraLAX] 17 gm PO DAILY #30 packet Home Medications: Home Meds Levothyroxine Sodium [Levoxyl] 75 mcg PO DAILY 09/24/15 [History] Ranitidine HCl 300 mg PO DAILY 09/24/15 [History] Rosuvastatin [Crestor] 10 mg PO DAILY 09/24/15 [History] buPROPion HCl [Wellbutrin Xl] 150 mg PO DAILY 09/24/15 [History] Insulin Aspart [NovoLOG] 20 units SUBCUT TIDMEALS PRN 03/14/17 [History] Lisinopril 2.5 mg PO DAILY PRN 03/14/17 [History] Triamcinolone Acetonide [Triamcinolone Acetonide 0.1% Crm] 1 applic TOP TID PRN 03/14/17 [History] Tresiba 40 unit SQ BID 06/27/17 [History] cycloSPORINE [Restasis] 1 drop EYEBOTH BID PRN 06/27/17 [History] Cyclobenzaprine HCl 10 mg PO Q6H PRN 03/20/19 [History] Gabapentin [Neurontin] 300 mg PO BID 03/20/19 [History] QUEtiapine Fumarate [Quetiapine Fumarate ER] 50 mg PO DAILY 03/20/19 [History] Triamcinolone Acetonide [Triamcinolone Acetonide 0.1% Crm] 1 applic TOP BID PRN 03/20/19 [History] Vortioxetine Hydrobromide [Trintellix] 20 mg PO DAILY 03/20/19 [History] traMADol [Ultram] 50 mg PO Q6H PRN 03/20/19 [History] traZODone HCl [Trazodone HCl] 100 mg PO BEDTIME 03/20/19 [History] Donepezil [Aricept] 5 mg PO BEDTIME #30 tablet 03/26/19 [Rx] Polyethylene Glycol 3350 [MiraLAX] 17 gm PO DAILY #30 packet 03/26/19 [Rx] - Discharge Summary/Plan Comment DC Time >30 min.: No - General Info Date of Service: 03/27/19 Admission Dx/Problem (Free Text: Bilateral Ankle Fractures Syncope Functional Status: Reports: Pain Controlled, Tolerating Diet. Denies: Ambulating - Review of Systems General: Reports: Weakness. Denies: Fatigue, Malaise, Chills HEENT: Reports: No Symptoms Pulmonary: Denies: Shortness of Breath, Cough, Wheezing Cardiovascular: Denies: Chest Pain, Edema, Lightheadedness Gastrointestinal: Denies: Abdominal Pain, Nausea, Vomiting Genitourinary: Reports: No Symptoms Musculoskeletal: Reports: Other (cam boot, splint intact to lower extremities) Skin: Reports: No Symptoms Neurological: Reports: No Symptoms - Patient Data Vitals - Most Recent: Last Vital Signs Temp 97.6 F 03/27/19 08:00 Pulse 82 03/27/19 08:00 Resp 18 03/27/19 08:00 BP 138/74 03/27/19 08:00 Pulse Ox 94 L 03/27/19 08:00 Weight - Most Recent: 220 lb Lab Results - Last 24 hrs: Laboratory Results - last 24 hr 03/26/19 03/27/19 Range/Units 19:32 07:26 POC Glucose 153 H 178 H (75-105) mg/dl Med Orders - Current: Current Medications Hydrocodone Bitart/Acetaminophen ([place] 325-5 Mg) 1 tab PO Q4H PRN PRN Reason: Pain (moderate 4-6) Last Admin: 03/26/19 16:05 Dose: 1 tab Bupropion HCl (Wellbutrin Xl) 150 mg PO DAILY [facility] Last Admin: 03/26/19 08:06 Dose: 150 mg Ceftriaxone Sodium (Rocephin) 1 gm IVPUSH DAILY@0800 [facility] Last Admin: 03/26/19 08:04 Dose: 1 gm Donepezil HCl (Aricept) 5 mg PO BEDTIME [facility] Last Admin: 03/26/19 19:27 Dose: 5 mg Enoxaparin Sodium (Lovenox) 40 mg SUBCUT Q24H [facility] Last Admin: 03/25/19 16:22 Dose: 40 mg Famotidine (Pepcid) 40 mg PO DAILY [facility] Last Admin: 03/27/19 07:31 Dose: 40 mg Gabapentin (Neurontin) 300 mg PO BID [facility] Last Admin: 03/26/19 19:27 Dose: 300 mg Insulin Glargine (Lantus Solostar) 30 units SUBCUT BID [facility] Last Admin: 03/27/19 07:32 Dose: 30 unit Insulin Human Lispro (Humalog) 20 unit SUBCUT TIDMEALS PRN PRN Reason: Hyperglycemia Levothyroxine Sodium (Synthroid) 75 mcg PO DAILY [facility] Last Admin: 03/27/19 07:31 Dose: 75 mcg Lisinopril (Prinivil) 2.5 mg PO DAILY PRN PRN Reason: Hypertension Magnesium Hydroxide (Milk Of Magnesia) 30 ml PO DAILY PRN PRN Reason: Constipation Last Admin: 03/24/19 13:55 Dose: 30 ml Morphine Sulfate (Morphine) 2 mg IVPUSH Q2H PRN PRN Reason: Pain (severe 7-10) Ptom Cyclosporine [ Restasis] 0.05% Ophth Soln 1 drop EYEBOTH BID PRN PRN Reason: Dry Eyes Last Admin: 03/25/19 07:57 Dose: 1 drop Ptom Vortioxetine Hydrobromide [ Trintellix] 20 Mg Tab 20 mg PO DAILY [facility] Last Admin: 03/26/19 08:04 Dose: 20 mg Ondansetron HCl (Zofran Odt) 4 mg PO Q4H PRN PRN Reason: nausea, able to take PO Ondansetron HCl (Zofran) 8 mg IV Q6H PRN PRN Reason: Nausea/Vomiting Polyethylene Glycol (Miralax) 17 gm PO DAILY [facility] Last Admin: 03/26/19 08:07 Dose: 17 gm Quetiapine Fumarate (Seroquel) 50 mg PO DAILY [facility] Last Admin: 03/26/19 08:05 Dose: 50 mg Simvastatin (Zocor) 40 mg PO BEDTIME [facility] Last Admin: 03/26/19 19:30 Dose: 40 mg Sodium Chloride (Saline Flush) 10 ml FLUSH ASDIRECTED PRN PRN Reason: Keep Vein Open Trazodone HCl (Trazodone) 100 mg PO BEDTIME [facility] Last Admin: 03/26/19 19:27 Dose: 100 mg Discontinued Medications Gabapentin (Neurontin) 300 mg PO BID [facility] Last Admin: 03/21/19 07:44 Dose: 300 mg Iopamidol (Isovue-370 (76%)) 100 ml IVPUSH ONETIME ONE Stop: 03/20/19 18:32 Last Admin: 03/20/19 18:41 Dose: 140 ml Non-Formulary Medication (Tresiba) 40 unit SQ BID [facility] Non-Formulary Medication (Tresiba) 30 unit SQ BID [facility] Last Admin: 03/21/19 10:12 Dose: Not Given - Exam General: Reports: Alert, Oriented HEENT: Reports: Mucous Membr. Moist/[place] Neck: Reports: Supple Lungs: Reports: Clear to Auscultation, Normal Respiratory Effort Cardiovascular: Reports: Regular Rate, Regular Rhythm GI/Abdominal Exam: Normal Bowel Sounds, Soft, Non-Tender Extremities: Normal Inspection, No Pedal Edema, Other (no weight bearing) Skin: Reports: Warm, Dry Neurological: Reports: No New Focal Deficit
[2019-03-27] MEDS: QUEtiapine 25 MG Tab PO SCH (09:06)
[2019-03-27] MEDS: Polyethylene Glycol 3350 Powder 17 GM Packet PO SCH (09:06)
[2019-03-27] MEDS: Gabapentin 300 MG Cap PO SCH (09:06)
[2019-03-27] MEDS: cefTRIAXone 1 GM Vial IVPUSH SCH (09:06)
[2019-03-27] MEDS: buPROPion 150 MG Tab.ER PO SCH (09:07)
[2019-03-27] MEDS: VORTIOXETINE HYDROBROMIDE 20 MG PO SCH (09:07)
== END 2019-03-27 08:30 | DRG 563 ==
LOC: CC.MS 13:28 → CC.FCMC 13:28 → CC.MS 14:51 → UNDOADMIN 14:51 → CC.MS 16:50
PROVIDERS: ADMIT Family Medicine; ATTEND Family Medicine
DX: S82.64XA Nondisplaced fracture of lateral malleolus of right fibula, initial encounter for closed fracture (principal); N30.00 Acute cystitis without hematuria; S82.55XA Nondisplaced fracture of medial malleolus of left tibia, initial encounter for closed fracture; K21.9 Gastro-esophageal reflux disease without esophagitis; E78.5 Hyperlipidemia, unspecified; F32.9 Major depressive disorder, single episode, unspecified; E03.9 Hypothyroidism, unspecified; I10 Essential (primary) hypertension; Z88.0 Allergy status to penicillin; Z88.1 Allergy status to other antibiotic agents; Z85.46 Personal history of malignant neoplasm of prostate; Z85.05 Personal history of malignant neoplasm of liver
CPT/HCPCS: 36415; 70450; 71045; 71275; 73600-LT; 73600-RT; 80048; 81001; 82607; 82962; 83735; 84484; 85025; 85379; 87086; 87088; 87186; 93005; 93306; 93880; A9270-GY; J0696; J1650; J1815-GY; Q9967

== ENCOUNTER 2021-11-05 16:11 | Emergency (ER) | payer OTHER, MEDICARE ==
[2021-11-05 16:45] VITALS: BP 153/90; PULSE 94
--- NOTE | 2021-11-05 17:07 | EDM.PDOC ---
ED HPI GENERAL MEDICAL PROBLEM - General Chief Complaint: General Stated Complaint: COVID Time Seen by Provider: 11/05/21 16:45 Source of Information: Reports: Patient History Limitations: Reports: No Limitations - History of Present Illness INITIAL COMMENTS - FREE TEXT/NARRATIVE: Mr. Arora is a 71-year-old male patient that presented to the emergency department with ongoing dizziness, shortness of breath, and nausea. Reports that he was diagnosed with COVID-19 on October 25 and received monoclonal antibodies November 01. Patient was also diagnosed with a urinary tract infection and is currently on ciprofloxacin for the past 4 days. Patient has been having some dizziness but states that it is worse today. Also has episodes of breathing difficulty. He denies chest pain. He does report associated nausea with no vomiting. Denies abdominal pain. States he had a couple episodes today where he became dizzy and about passed out. States that he is out of quarantine now for his COVID-19 and could return to work today but he just does not feel well enough to go to work. Reports that his primary care was monitoring his heart and he sent a Zio monitor and but has not heard results. He states they did this due to his dizziness. Onset: Gradual Duration: Day(s): Improves with: Reports: None Worsens with: Reports: None Associated Symptoms: Reports: Nausea/Vomiting. Denies: Chest Pain, Cough, Fever/Chills - Related Data Allergies Allergy/AdvReac Type Severity Reaction Status Date / Time amoxicillin Allergy Syncope Verified 11/05/21 16:37 Penicillins Allergy Syncope Verified 11/05/21 16:37 Home Meds: Home Meds Levothyroxine Sodium [Levoxyl] 100 mcg PO DAILY 09/24/15 [History] buPROPion HCL [Wellbutrin Xl] 150 mg PO DAILY 09/24/15 [History] Tresiba 30 unit SQ BID 06/27/17 [History] cycloSPORINE [Restasis] 1 drop EYEBOTH BID PRN 06/27/17 [History] Cyclobenzaprine HCl 10 mg PO Q8H PRN 03/20/19 [History] Gabapentin [Neurontin] 300 mg PO BID 03/20/19 [History] QUEtiapine Fumarate [Quetiapine Fumarate ER] 26 mg PO BID 03/20/19 [History] Triamcinolone Acetonide [Triamcinolone Acetonide 0.1% Crm] 1 applic TOP BID PRN 03/20/19 [History] Vortioxetine Hydrobromide [Trintellix] 20 mg PO DAILY 03/20/19 [History] traZODone HCl [Trazodone HCl] 100 mg PO BEDTIME PRN 03/20/19 [History] Donepezil [Aricept] 5 mg PO BEDTIME #30 tablet 03/26/19 [Rx] Famotidine 40 mg PO DAILY 11/01/21 [History] Magnesium Hydroxide [Milk of Magnesia] 30 ml PO DAILY PRN 11/01/21 [History] Mirabegron [Myrbetriq] 25 mg PO DAILY 11/01/21 [History] Nystatin/Triamcin [Nystatin-Triamcinolone Cream] 1 applic TOP BID PRN 11/01/21 [History] Simvastatin 40 mg PO DAILY 11/01/21 [History] polyethylene glycoL 3350 [MiraLAX] 17 gm PO DAILY PRN 11/01/21 [History] Ciprofloxacin [Ciprofloxacin HCl] 500 mg PO BID 11/05/21 [History] Past Medical History HEENT History: Reports: Allergic Rhinitis, Cataract, Impaired Vision Cardiovascular History: Reports: High Cholesterol, Hypertension Gastrointestinal History: Reports: Diverticulosis, GERD, Other (See Below) Other Gastrointestinal History: colon resection Genitourinary History: Reports: Chronic Renal Insuffiency, Prostate Disorder Other Genitourinary History: PROSTATE CA WITH REMOVAL Musculoskeletal History: Reports: Neck Pain, Chronic Neurological History: Reports: Headaches, Chronic Psychiatric History: Reports: Depression Endocrine/Metabolic History: Reports: Diabetes, Type II, Hypothyroidism Oncologic (Cancer) History: Reports: Liver, Prostate - Past Surgical History Cardiovascular Surgical History: Reports: Carotid Endarterectomy Social & Family History - Family History Family Medical History: No Pertinent Family History Cardiac: Reports: High Cholesterol, Hypertension Psychiatric: Reports: Depression - Living Situation & Occupation Living situation: Reports: Occupation: Employed ED ROS GENERAL - Review of Systems Review Of Systems: See Below Constitutional: Reports: Malaise, Fatigue HEENT: Reports: Glasses Respiratory: Reports: Shortness of Breath. Denies: Wheezing, Pleuritic Chest Pain, Cough Cardiovascular: Reports: Dyspnea on Exertion, Lightheadedness Endocrine: Reports: Fatigue GI/Abdominal: Reports: Nausea. Denies: Abdominal Pain, Black Stool, Bloody Stool, Constipation, Vomiting : Reports: Dysuria, Other (known UTI) Musculoskeletal: Reports: Muscle Stiffness Skin: Reports: No Symptoms. Denies: Rash, Erythema Neurological: Reports: Dizziness. Denies: Numbness, Paresthesia, Tingling, Trouble Speaking Psychiatric: Reports: No Symptoms Hematologic/Lymphatic: Reports: No Symptoms Immunologic: Reports: No Symptoms ED EXAM, GENERAL - Physical Exam Exam: See Below Exam Limited By: No Limitations General Appearance: Alert, WD/WN, Mild Distress Eye Exam: Bilateral Eye: Normal Inspection Ears: Normal External Exam, Hearing Grossly Normal Nose: Normal Inspection, No Blood Throat/Mouth: Normal Inspection, Normal Voice, No Airway Compromise Head: Atraumatic, Normocephalic Neck: Normal Inspection, Supple, Non-Tender. No: Lymphadenopathy (L) Respiratory/Chest: No Respiratory Distress, Lungs Clear, Normal Breath Sounds, No Accessory Muscle Use. No: Respiratory Distress, Crackles, Rales, Rhonchi, Wheezing Cardiovascular: Normal Peripheral Pulses, Regular Rate, Rhythm, No Edema, No Gallop, No JVD, No Murmur, No Rub GI/Abdominal: Normal Bowel Sounds, Soft, Non-Tender, No Organomegaly, No Distention (Male) Exam: Deferred Rectal (Males) Exam: Deferred Back Exam: No: CVA Tenderness (L), CVA Tenderness (R) Extremities: Normal Inspection, Normal Capillary Refill Neurological: Alert, Oriented, Normal Cognition, Normal Gait, No Motor/Sensory Deficits Psychiatric: Normal Affect, Normal Mood Skin Exam: Warm, Dry, Intact Lymphatic: No Adenopathy #1 Interpretation EKG Date: 11/05/21 Time: 17:07 Rhythm: NSR [place]: Normal P-Wave: Present QRS: Normal ST-T: Normal QT: Normal Comparison: NA - No Prior EKG Course - Vital Signs Last Recorded V/S: Last Vital Signs Temp 96.3 F L 11/05/21 16:42 Pulse 94 11/05/21 16:42 Resp 16 11/05/21 16:42 BP 153/90 H 11/05/21 16:42 Pulse Ox 96 11/05/21 16:42 - Orders/Labs/Meds Orders: Active Orders 24 hr Category Date Time Status Chest 2V [CR] Stat Exams 11/05/21 16:48 Taken Labs: Laboratory Tests 11/05/21 11/05/21 11/05/21 Range/Units 16:55 16:55 16:55 WBC 8.0 (4.0-11.0) 10^3/uL RBC 3.91 L (4.50-6.00) x10^6/uL Hgb 12.0 L (14.0-18.0) g/dL Hct 35.9 L (42.0-52.0) % MCV 91.8 (83.0-97.0) fL MCH 30.7 (27.0-32.0) pg MCHC 33.4 (32.0-36.0) g/dL RDW Coeff of Krista 12.2 (11.0-15.0) % Plt Count 336 (150-400) 10^3/uL Immature Gran % (Auto) 0.1 (0.0-4.9) % Neut % (Auto) 70.9 (41-71) % Lymph % (Auto) 14.1 L (24-44) % Isabela % (Auto) 12.9 H (0-10) % Eos % (Auto) 1.9 (0-6) % Baso % (Auto) 0.1 (0-1) % Neut # (Auto) 5.67 (1.80-8.00) x10^3/uL Lymph # (Auto) 1.13 (0.60-5.00) 10^3/uL Isabela # (Auto) 1.03 (0.00-1.50) 10^3/uL Eos # (Auto) 0.15 (0.00-1.50) 10^3/uL Baso # (Auto) 0.01 (0.00-0.50) 10^3/uL Immature Gran # (Auto) 0.01 (0.00-0.49) 10^3/uL D-Dimer, Quantitative (0.00-0.50) Sodium 143 (136-145) mEq/L Potassium 3.4 L D (3.5-5.0) mEq/L Chloride 103 (98-106) mEq/L Carbon Dioxide 30 (21-32) mmol/L BUN 27 H (7-18) mg/dL Creatinine 1.4 H (0.7-1.3) mg/dL Est Cr Clr Drug Dosing 45.46 mL/min Estimated GFR (MDRD) 50 L (>=60) mL/min Glucose 178 H D (75-99) mg/dL Lactic Acid 1.5 (0.4-2.0) mmol/L Calcium 8.6 (8.4-10.1) mg/dL Total Bilirubin 0.5 (0.0-1.0) mg/dL AST 16 (15-37) U/L ALT 15 (12-78) U/L Alkaline Phosphatase 67 (46-116) U/L Troponin I High Sens 8.5 (<=76) pg/mL C-Reactive Protein 13.1 H (0.2-0.8) mg/dL Total Protein 7.4 (6.4-8.2) g/dL Albumin 2.9 L (3.4-5.0) g/dL 11/05/21 Range/Units 16:55 WBC (4.0-11.0) 10^3/uL RBC (4.50-6.00) x10^6/uL Hgb (14.0-18.0) g/dL Hct (42.0-52.0) % MCV (83.0-97.0) fL MCH (27.0-32.0) pg MCHC (32.0-36.0) g/dL RDW Coeff of Krista (11.0-15.0) % Plt Count (150-400) 10^3/uL Immature Gran % (Auto) (0.0-4.9) % Neut % (Auto) (41-71) % Lymph % (Auto) (24-44) % Isabela % (Auto) (0-10) % Eos % (Auto) (0-6) % Baso % (Auto) (0-1) % Neut # (Auto) (1.80-8.00) x10^3/uL Lymph # (Auto) (0.60-5.00) 10^3/uL Isabela # (Auto) (0.00-1.50) 10^3/uL Eos # (Auto) (0.00-1.50) 10^3/uL Baso # (Auto) (0.00-0.50) 10^3/uL Immature Gran # (Auto) (0.00-0.49) 10^3/uL D-Dimer, Quantitative 0.92 H (0.00-0.50) Sodium (136-145) mEq/L Potassium (3.5-5.0) mEq/L Chloride (98-106) mEq/L Carbon Dioxide (21-32) mmol/L BUN (7-18) mg/dL Creatinine (0.7-1.3) mg/dL Est Cr Clr Drug Dosing mL/min Estimated GFR (MDRD) (>=60) mL/min Glucose (75-99) mg/dL Lactic Acid (0.4-2.0) mmol/L Calcium (8.4-10.1) mg/dL Total Bilirubin (0.0-1.0) mg/dL AST (15-37) U/L ALT (12-78) U/L Alkaline Phosphatase (46-116) U/L Troponin I High Sens (<=76) pg/mL C-Reactive Protein (0.2-0.8) mg/dL Total Protein (6.4-8.2) g/dL Albumin (3.4-5.0) g/dL - Re-Assessments/Exams Free Text/Narrative Re-Assessment/Exam: Mr. Arora is a 71-year-old male patient that presented to the emergency department with dizziness and shortness of breath. He is also had associated nausea. He was diagnosed with COVID-19 by his quarantine. Is over and received monoclonal antibodies. He has a subsequent UTI and has been on Cipro for the last 4 days. He stated his dizziness was worse today. He also received cardiac monitoring that he sent and and has not heard the results of yet. Due to the increased dizziness we did obtain an EKG showing a normal sinus rhythm with no acute changes. Labs were also obtained due to recent history including a CBC, CMP, CRP, lactic acid, D-dimer, and troponin. His CRP was elevated which is to be expected. His D-dimer and troponin were negative. A chest x-ray was obtained and and I personally reviewed which showed no obvious acute infiltrate or effusion. Patient may have areas showing a viral process. Plan will be to discharge patient home. He is encouraged to drink plenty of fluids. Activity as tolerated and was educated that he does need to move around at home. He does have a walker that he will use especially with the dizziness. Also educated to sit down if he is having dizziness while standing or walking to prevent falling injury. Patient should follow-up with his primary care provider for Zio results. He should continue his ciprofloxacin for his urinary tract infection. A work note was given and he may return to work Wednesday November 10, 2021. Patient to follow-up with primary care provider as needed and scheduled. Call or return if any questions, concerns, or worsening condition. Departure - Departure Time of Disposition: 17:34 Disposition: Home, Self-Care 01 Condition: Good Clinical Impression: COVID-19, Dizziness UTI (urinary tract infection) Qualifiers: Urinary tract infection type: acute cystitis Hematuria presence: without hematuria Qualified Code(s): N30.00 - Acute cystitis without hematuria - Discharge Information *PRESCRIPTION DRUG MONITORING PROGRAM REVIEWED*: Not Applicable *COPY OF PRESCRIPTION DRUG MONITORING REPORT IN PATIENT TAYO: Not Applicable Instructions: Urinary Tract Infection, Adult, Symptoms of COVID-19 - CDC (01/18/2021), Dizziness, [id number] Forms: ED Department Discharge Additional Instructions: 1. Continue your antibiotic for urinary tract infection. 2. Drink plenty fluids to stay hydrated. 3. Activity as tolerated and make sure you walk some at home. 4. If dizzy while standing or walk, sit down to prevent falling or injury. 5. Follow-up with your cardiac monitoring results. 6. Follow-up with your primary care provider as needed or scheduled. 7. Work note through MondayNovember 10. 8. Call or return if questions or symptoms worsen. Sepsis Event Note (ED) - Evaluation Sepsis Screening Result: No Definite Risk - Focused Exam Vital Signs: Vital Signs Temp Pulse Resp BP Pulse Ox 11/05/21 16:42 96.3 F L 94 16 153/90 H 96
== END 2021-11-05 17:50 | disposition home or self-care (01) ==
LOC: CC.ED 16:11
DX: U07.1 COVID-19 (principal); N30.00 Acute cystitis without hematuria; R42 Dizziness and giddiness; E78.00 Pure hypercholesterolemia, unspecified; E11.22 Type 2 diabetes mellitus with diabetic chronic kidney disease; I12.9 Hypertensive chronic kidney disease with stage 1 through stage 4 chronic kidney disease, or unspecified chronic kidney disease; N18.9 Chronic kidney disease, unspecified; K21.9 Gastro-esophageal reflux disease without esophagitis; E03.9 Hypothyroidism, unspecified; Z88.0 Allergy status to penicillin; Z79.899 Other long term (current) drug therapy
CPT/HCPCS: 36415; 71046; 80053; 83605; 84484; 85025; 85379; 86140; 93005; 99284; 99284-25